=== PATIENT | female | born 1965 | race Caucasian/White ===

== ENCOUNTER → 2018-03-28 12:03 | Outpatient (CLI) | payer BC, SELFPAY ==
--- NOTE | 2018-03-28 12:05 | BI_ITS ---
MAMMOGRAPHY - BILATERAL SCREENING REASON FOR EXAM: Female, 52 years old. Routine annual screening examination. PERTINENT HISTORY: Non-contributory. TECHNIQUE: Digital bilateral breast katrina (3D mammographic acquisition) in the CC and MLO projections. 2-D mediolateral oblique (MLO) and craniocaudad (CC) views of both breasts were obtained. CAD: Full Field Digital Mammography with Computer Added Detection was performed. COMPARISON: Comparison is made with prior study dated March 19, 2017 and January 03, 2016. FINDINGS: Breast Composition: The breasts are heterogeneously dense, which may obscure small masses. There are no dominant masses or suspicious calcifications. No other significant abnormalities are identified. There has been no significant change since the prior study. BI/SCREENING MAMM (CAD), BILAT IMPRESSION: Stable bilateral screening mammogram. Yearly follow-up mammogram recommended. (A) ASSESSMENT CATEGORY: BIRADS Category 1: Negative. A letter regarding these results will be sent to the patient by the facility within 30 days. Approximately 10% of breast cancers are not detected by mammography. A normal mammogram should not delay biopsy of a clinically suspicious abnormality. [id number] Electronically Signed: Miguel Alexander MD at 13:39 EDT Tel [phone], Service support ,
== END ==
PROVIDERS: Family Provider Internal Medicine; PCP Internal Medicine; Visit Provider Nurse Practitioner Women's Health
DX: Z12.31 Encounter for screening mammogram for malignant neoplasm of breast (principal)
CPT/HCPCS: 77063; 77067

== ENCOUNTER 2018-03-31 09:53 | Inpatient (IN) | payer BC, SELFPAY ==
[2018-03-31 09:54] VITALS: BP 127/85; PULSE 96; RESP 16; TEMP 37.1; O2SAT 97; BMI 28.5
--- NOTE | 2018-03-31 10:07 | EKG12_ITS ---
Test Reason : Blood Pressure : / mmHG Vent. Rate : 082 BPM Atrial Rate : 082 BPM P-R Int : 184 ms QRS Dur : 112 ms QT Int : 408 ms P-R-T Axes : 054 053 039 degrees QTc Int : 476 ms Normal sinus rhythm Low voltage QRS Borderline ECG Confirmed by GRAEME PERLA, JENNIFER ([id number]), assignment editor KINGSTON BETTS ([id number]) on 04/03/2018 1:15:20 PM Referred By: Otilia Collins Confirmed By:JENNIFER BEDOLLA MD
--- NOTE | 2018-03-31 10:07 | RAD_ITS ---
STUDY: X-RAY CHEST REASON FOR EXAM: Female, 52 years old. Preoperative evaluation. TECHNIQUE: Single AP portable view of the chest. COMPARISON: Comparison is made with prior study dated August 05, 2013. FINDINGS: EKG electrodes are seen. The lungs are clear and expanded. There is no demonstrated pleural abnormality. Normal size heart. Normal mediastinum and david. Normal visualized pulmonary arteries. Normal visualized aortic arch and descending thoracic aorta. Normal visualized thoracic spine. Normal visualized ribs, clavicles, and shoulders. There is no demonstrated abnormality of the visualized soft tissue structures of the upper abdomen. RAD/Chest 1 View (Portable) IMPRESSION: Normal x-ray examination of the chest. Electronically Signed: Miguel Alexander MD at 10:59 EDT Tel [phone], Service support ,
--- NOTE | 2018-03-31 10:08 | RAD_ITS ---
STUDY: X-RAY - PELVIS REASON FOR EXAM: Female, 52 years old. Right leg pain following a fall from a horse. TECHNIQUE: One view of the pelvis was obtained. COMPARISON: None. FINDINGS: There is a non-specific bowel gas pattern. There is a 5.9 cm x 4.2 cm rounded calcification in the right hemipelvis. This most likely represents a calcified fibroid uterus. Normal bilateral iliac wings, sacroiliac joints and visualized sacrum. Normal visualized bilateral superior and inferior pubic rami. Normal pubic symphysis. Normal ischial tuberosities. Normal visualized right femoral head. Normal right acetabulum. Normal right hip joint. Normal visualized left femoral head. Normal left acetabulum. Normal left hip joint. RAD/Pelvis 1 or 2 Views IMPRESSION: No fracture or dislocation is seen. Findings suggestive of a calcified fibroid uterus. Electronically Signed: Miguel Alexander MD at 10:59 EDT Tel [phone], Service support ,
--- NOTE | 2018-03-31 10:08 | RAD_ITS ---
STUDY: X-RAY - RIGHT FEMUR REASON FOR STUDY: Female, 52 years old. History of fall. TECHNIQUE: Radiological exam, femur, minimum 2 views COMPARISON: None. FINDINGS: Transverse fracture of the distal femoral shaft with anterior dislocation of the distal fracture fragment. Soft tissue swelling. RAD/Femur Min 2 Views IMPRESSION: Transverse fracture through the distal shaft of the femur with anterior dislocation of the distal fracture fragment. Soft tissue swelling. Electronically Signed: Miguel Alexander MD at 11:00 EDT Tel [phone], Service support ,
--- NOTE | 2018-03-31 10:11 | NURSING ---
NO OLD EKGS
--- NOTE | 2018-03-31 10:12 | ED.VISSUMM ---
- ER Visit Summary Date of Service: 03/31/18 Chief Complaint: Leg trauma History of Present Illness: The patient is a 52 F with a crush injury to her right mid femur region. Apparently a horse landed on her femur. No hip pain no knee pain no head injury no back pain no abdominal pain no chest pain. Physical Examination: Patient has no other signs of trauma. She has a stable pelvis a soft abdomen no back pain. She has no knee pain. She has quite a bit of pain over the midshaft of her femur. There is an obvious deformity. There is no skin break. Distal pulses are intact. Normal capillary refill. Neurovascularly intact Emergency Department Course and Treatment: She is found to have a distal femur fracture. Analgesia was given. EKG and chest x-ray as well as blood work were obtained. Pelvis and knee x-ray were unremarkable. Patient will be admitted I will discuss with orthopedics for surgery. Disposition: Admit stable condition Impression: Right distal femur fracture This note was generated with [employer] dictation software. It may contain incorrect words, spelling, and punctuation that were not noted in review of the chart prior to signing ED Disposition - Plan for ED Patient: Chief Complaint: Lower Extremity Injury Referrals: Katelyn Richmond DO [Primary Care Provider] -
[2018-03-31] MEDS: Morphine 4 MG/ML Syringe IV (10:13)
[2018-03-31 10:22] LABS: Absolute Lymphocyte Count 1.39 X10^3/ul (0.83-4.51); Absolute Neutrophil Count 5.5 X10^3/uL (2.0-7.7); Basophil# 0.03 X10^3/uL; Basophil% 0.4 % (0-1); Eosinophil# 0.12 X10^3/uL; Eosinophils% 1.6 % (0-5); Hematocrit 41.5 % (37-47); Hemoglobin 13.9 g/dl (12.0-15.0); Lymphocyte # 1.39 X10^3/ul (4.0); Lymphocyte % 18.7 % (19-41); Mean Corp Hgb Conc 33.5 g/gl (32-36); Mean Corpuscular Hgb 29.6 pg (27.0-32.0); Mean Corpuscular Volume 88.3 fL (81-99); Mean Platelet Vol. 11.3 fl (6.2-12.0); Monocyte# 0.39 X10^3/uL; Monocyte% 5.2 % (0-10); Neutrophil # 5.48 X10^3/uL (2.7-7.7); Neutrophil % 73.7 % (47-70); Platelet Count 213 K/mm3 (150-450); RBC Distribution Width CV 13.2 % (11.6-14.6); RBC Distribution Width SD 42.5 fl (35.1-43.9); White Blood Count 7.4 K/mm3 (4.4-11.0)
[2018-03-31] MEDS: Ondansetron 4 MG/2 ML Vial IV ×2 (10:23→12:17)
[2018-03-31 10:24] LABS: POSITIVE COUNT NO; POSITIVE DIFFERENTIAL NO; POSITIVE MORPHOLOGY NO
[2018-03-31 10:39] LABS: AST(SGOT) 33 U/L (15-37); Alanine Aminotransfer ALT/SGPT 32 U/L (13-56); Albumin, Serum 3.7 g/dL (3.2-5.0); Alkaline Phosphatase 74 U/L (45-117); Anion Gap 8 (5-15); BUN 19 mg/dL (7-18); BUN/Creat Ratio 19.3 RATIO (10-20); Calcium,Total 8.8 mg/dL (8.5-10.1); Chloride 106 mmol/L (98-107); Creatinine, Serum 0.99 mg/dL (0.55-1.02); EST Glomerular Filtration Rate 63 mL/min (>60); Est Glom Filt Rate - Afr Amer 77 mL/min (>60); Estimated Creatinine Clearance 56.24 ml/min; Globulin 3.6 g/dL (2.2-4.2); Glucose 151 mg/dL (74-106); Potassium 3.6 mmol/L (3.5-5.1); Protein, Total 7.3 g/dL (6.4-8.2); Sodium Level 143 mmol/L (136-145)
--- NOTE | 2018-03-31 11:22 | NURSING ---
DR BURTON SOTO
--- NOTE | 2018-03-31 11:24 | ED.RN ---
THIS RN AND CHRISSY LI FLUSHED PT RT FOOT WOUND MULTIPLE TIMES . WOUND PICKED CLEAN OF MAGGOTS. AREA FLUSHED TIL CLEAR.FOOT WRAPPED WITH TELFA,AND KERLEX. SMALL 4X4 FOLDED IN BETWEEN TOES TO DRY. DR PALMA
--- NOTE | 2018-03-31 11:29 | NURSING ---
DR RAVI SOTO
--- NOTE | 2018-03-31 11:33 | NURSING ---
MED SURG FEMUR FX RAVI/BRITTANY
--- NOTE | 2018-03-31 11:43 | NURSING ---
MED SURG FX OF LOWER EXTREMITY KORAM
--- NOTE | 2018-03-31 11:49 | NURSING ---
DR RODRIGUES IN WITH PATIENT
[2018-03-31 11:57] VITALS: PULSE 73; RESP 15; O2SAT 99
--- NOTE | 2018-03-31 11:59 | PCM.HP.STD ---
Problem List (1) Right femoral fracture Status: Acute History of Present Illness Date of Admission: 03/31/18 Chief Complaint: right LE pain The patient is a 52 year old F with a history of hypothyroidism. She was admitted via the ED, with a complaint of left hip pain after she fell off her horse this morning. She says she thinks the horse stepped on her leg, and she started having severe pain after that. She denies any fever or chills, any cough or chest pain, shortness of breath, abdominal pain, any diarrhea vomiting. Imaging done in the ED showed fracture of the right femur. She has been admitted to be managed for right femoral fracture, to consult orthopedics. 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 Lives: With Family Smoking Status: Former smoker - quit over 20 years ago Alcohol: Rare Drugs: None - *Family History Maternal History Items: Hypertension Paternal History Items: Heart Disease, Hypertension Review of Systems Constitutional: Denies: Chills, Fever, Weight Change Eyes: Denies: Blurred vision HEENT: Denies: Head Aches, Sinus Congestion, Sinus Drainage Cardiovascular: Denies: Chest Pain, Palpitations Respiratory: Denies: Cough, Shortness of breath at rest, Sputum production Gastrointestinal: Denies: Abdominal Pain, Nausea, Vomiting Genitourinary: Denies: Dysuria Musculoskeletal: Reports: Leg Pain - right lower extremity pain Skin: Denies: Rash, Wounds Neurological: Denies: Numbness, Tingling, Focal weakness Psychiatric: Denies: Anxiety, Depression, Homicidal Ideations, Suicidal Ideations Hematologic/ Lymphatic: Denies: Easy Bruising, Easy Bleeding VTE Information - Inpt Only VTE Present on Admission: No VTE Mechan Device Prophylaxis: SCD's VTE Pharm Prophylaxis ordered?: Yes Patient Problems: Active and Suspected Problems Right femoral fracture (Acute) - Physical Exam General: Alert, Oriented x3, Cooperative, No apparent distress HEENT: Atraumatic, PERRLA, EOMI, Normocephalic Oral: Moist Mucosa Neck: Supple, No JVD, Negative Carotid Bruits Lungs: Clear to auscultation, Normal air movement Cardiovascular: Regular rate, Regular Rhythm, Normal S1, Normal S2, No murmurs Abdomen: Bowel Sounds Present, Soft, Non Tender, Non-Distended, No Hepato-splenomegaly Extremities: No clubbing, No cyanosis, No edema, Capillary Refill Less than 3 Seconds Skin: No rashes, No breakdown Musculoskeletal: - - RLE shortened, externally rotated, no visible swelling or erythema Lymphatic: No Cervical, Supraclavicular, or Inguinal Adenopathy Neurological: Cranial nerves II-XII grossly intact, Neuro grossly intact Psych/Mental Status: Normal Affect, Appropriate, Alert and oriented to time, place, person, mood and affect Vital Signs Temp Pulse Resp BP Pulse Ox 98.7 F 73 15 127/85 H 99 03/31/18 09:54 03/31/18 11:57 03/31/18 11:57 03/31/18 09:54 03/31/18 11:57 Oxygen Delivery Method Room Air Weight: 160 lb 14.999 oz Body Mass Index (BMI) 28.5 Laboratory Tests Past 24 Hrs 03/31/18 03/31/18 09:30 09:30 WBC 7.4 RBC 4.70 Hgb 13.9 Hct 41.5 MCV 88.3 MCH 29.6 MCHC 33.5 RDW 13.2 RDW Differential 42.5 Plt Count 213 MPV 11.3 Immature Gran % (Auto) 0.400 Neut % (Auto) 73.7 H Lymph % (Auto) 18.7 L Harris % (Auto) 5.2 Eos % (Auto) 1.6 Baso % (Auto) 0.4 Absolute Neuts (auto) 5.5 Absolute Lymphs (auto) 1.39 Diagnostic Data Chest X-Ray 03/31/18 10:07 IMPRESSION: Normal x-ray examination of the chest. Electronically Signed: Miguel Alexander MD at 10:59 EDT Tel [phone], Service support , Femur X-Ray 03/31/18 10:08 IMPRESSION: Transverse fracture through the distal shaft of the femur with anterior dislocation of the distal fracture fragment. Soft tissue swelling. Electronically Signed: Miguel Alexander MD at 11:00 EDT Tel [phone], Service support , Pelvis X-Ray 03/31/18 10:08 IMPRESSION: No fracture or dislocation is seen. Findings suggestive of a calcified fibroid uterus. Electronically Signed: Miguel Alexander MD at 10:59 EDT Tel [phone], Service support , Total Counted Not Reportable Sodium 143 Potassium 3.6 Chloride 106 Carbon Dioxide 29.0 Anion Gap 8 BUN 19 H Creatinine 0.99 Estim Creat Clear Calc 56.24 Est GFR (MDRD) Af Amer 77 Est GFR (MDRD) Non-Af 63 BUN/Creatinine Ratio 19.3 Glucose 151 H Calcium 8.8 Total Bilirubin 0.50 AST 33 ALT 32 Alkaline Phosphatase 74 Total Protein 7.3 Albumin 3.7 Globulin 3.6 Albumin/Globulin Ratio 1.0 Assessment/Plan All Active Problems Right femoral fracture (Acute) 52 year-old female presenting with right lower extremity pain after she fell off her horse and horse stepped on her right leg. 1. RLE traumatic femoral fracture Right lower extremity shortened and externally rotated. Vitals stable. Imaging showed transverse fracture of the distal femoral shaft with anterior dislocation of the distal fracture fragment and soft tissue swelling. Will admit to MedSurg unit. N.p.o., IV fluids. IV morphine for pain control. Orthopedic surgery consult placed. Per discussion with Dr Rondon, patient to have skin traction; if that is unsuccessful, with have skeletal traction done by Dr Rondon. EKG showed NSR with no acute ST changes or any other abnormalities. Is low risk for surgery 2. Hypothyroidism: on synthroid. Will continue 3. DVT prophylaxis: heparin This note was generated with [employer] software. It may contain incorrect words, spelling, and punctuation that were not noted in checking the note before signing. Code Visit Inpatient E&M: 43192 Init Hosp L2
[2018-03-31] MEDS: HYDROmorphone 1 MG/ML Syringe IV (12:07)
--- NOTE | 2018-03-31 12:09 | HP.PCM_ITS ---
Problem List (1) Right femoral fracture Status: Acute History of Present Illness Date of Admission: 03/31/18 Chief Complaint: right LE pain The patient is a 52 year old F with a history of hypothyroidism. She was admitted via the ED, with a complaint of left hip pain after she fell off her horse this morning. She says she thinks the horse stepped on her leg, and she started having severe pain after that. She denies any fever or chills, any cough or chest pain, shortness of breath, abdominal pain, any diarrhea vomiting. Imaging done in the ED showed fracture of the right femur. She has been admitted to be managed for right femoral fracture, to consult orthopedics. 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 Lives: With Family Smoking Status: Former smoker - quit over 20 years ago Alcohol: Rare Drugs: None - *Family History Maternal History Items: Hypertension Paternal History Items: Heart Disease, Hypertension Review of Systems Constitutional: Denies: Chills, Fever, Weight Change Eyes: Denies: Blurred vision HEENT: Denies: Head Aches, Sinus Congestion, Sinus Drainage Cardiovascular: Denies: Chest Pain, Palpitations Respiratory: Denies: Cough, Shortness of breath at rest, Sputum production Gastrointestinal: Denies: Abdominal Pain, Nausea, Vomiting Genitourinary: Denies: Dysuria Musculoskeletal: Reports: Leg Pain - right lower extremity pain Skin: Denies: Rash, Wounds Neurological: Denies: Numbness, Tingling, Focal weakness Psychiatric: Denies: Anxiety, Depression, Homicidal Ideations, Suicidal Ideations Hematologic/ Lymphatic: Denies: Easy Bruising, Easy Bleeding VTE Information - Inpt Only VTE Present on Admission: No VTE Mechan Device Prophylaxis: SCD's VTE Pharm Prophylaxis ordered?: Yes Patient Problems: Active and Suspected Problems Right femoral fracture (Acute) - Physical Exam General: Alert, Oriented x3, Cooperative, No apparent distress HEENT: Atraumatic, PERRLA, EOMI, Normocephalic Oral: Moist Mucosa Neck: Supple, No JVD, Negative Carotid Bruits Lungs: Clear to auscultation, Normal air movement Cardiovascular: Regular rate, Regular Rhythm, Normal S1, Normal S2, No murmurs Abdomen: Bowel Sounds Present, Soft, Non Tender, Non-Distended, No Hepato- splenomegaly Extremities: No clubbing, No cyanosis, No edema, Capillary Refill Less than 3 Seconds Skin: No rashes, No breakdown Musculoskeletal: - - RLE shortened, externally rotated, no visible swelling or erythema Lymphatic: No Cervical, Supraclavicular, or Inguinal Adenopathy Neurological: Cranial nerves II-XII grossly intact, Neuro grossly intact Psych/Mental Status: Normal Affect, Appropriate, Alert and oriented to time, place, person, mood and affect Vital Signs Temp Pulse Resp BP Pulse Ox 98.7 F 73 15 127/85 H 99 03/31/18 09:54 03/31/18 11:57 03/31/18 11:57 03/31/18 09:54 03/31/18 11:57 Oxygen Delivery Method Room Air Weight: 160 lb 14.999 oz Body Mass Index (BMI) 28.5 Laboratory Tests Past 24 Hrs 03/31/18 03/31/18 09:30 09:30 WBC 7.4 RBC 4.70 Hgb 13.9 Hct 41.5 MCV 88.3 MCH 29.6 MCHC 33.5 RDW 13.2 RDW Differential 42.5 Plt Count 213 MPV 11.3 Immature Gran % (Auto) 0.400 Neut % (Auto) 73.7 H Lymph % (Auto) 18.7 L Barnwell % (Auto) 5.2 Eos % (Auto) 1.6 Baso % (Auto) 0.4 Absolute Neuts (auto) 5.5 Absolute Lymphs (auto) 1.39 Diagnostic Data Chest X-Ray 03/31/18 10:07 IMPRESSION: Normal x-ray examination of the chest. Electronically Signed: Miguel Alexander MD at 10:59 EDT Tel [phone], Service support , Femur X-Ray 03/31/18 10:08 IMPRESSION: Transverse fracture through the distal shaft of the femur with anterior dislocation of the distal fracture fragment. Soft tissue swelling. Electronically Signed: Miguel Alexander MD at 11:00 EDT Tel [phone], Service support , Pelvis X-Ray 03/31/18 10:08 IMPRESSION: No fracture or dislocation is seen. Findings suggestive of a calcified fibroid uterus. Electronically Signed: Miguel Alexander MD at 10:59 EDT Tel [phone], Service support , Total Counted Not Reportable Sodium 143 Potassium 3.6 Chloride 106 Carbon Dioxide 29.0 Anion Gap 8 BUN 19 H Creatinine 0.99 Estim Creat Clear Calc 56.24 Est GFR (MDRD) Af Amer 77 Est GFR (MDRD) Non-Af 63 BUN/Creatinine Ratio 19.3 Glucose 151 H Calcium 8.8 Total Bilirubin 0.50 AST 33 ALT 32 Alkaline Phosphatase 74 Total Protein 7.3 Albumin 3.7 Globulin 3.6 Albumin/Globulin Ratio 1.0 Assessment/Plan All Active Problems Right femoral fracture (Acute) 52 year-old female presenting with right lower extremity pain after she fell off her horse and horse stepped on her right leg. 1. RLE traumatic femoral fracture * Right lower extremity shortened and externally rotated. * Vitals stable. * Imaging showed transverse fracture of the distal femoral shaft with anterior dislocation of the distal fracture fragment and soft tissue swelling. * Will admit to MedSurg unit. * N.p.o., IV fluids. IV morphine for pain control. * Orthopedic surgery consult placed. Per discussion with Dr Rondon, patient to have skin traction; if that is unsuccessful, with have skeletal traction done by Dr Rondon. * EKG showed NSR with no acute ST changes or any other abnormalities. Is low risk for surgery * 2. Hypothyroidism: on synthroid. Will continue 3. DVT prophylaxis: heparin This note was generated with [employer] software. It may contain incorrect words, spelling, and punctuation that were not noted in checking the note before signing. Code Visit Inpatient E&M: 77076 Init Hosp L2
[2018-03-31 12:18] VITALS: PULSE 78; RESP 19; O2SAT 98
[2018-03-31 12:35] VITALS: BP 116/69; PULSE 73; RESP 18; TEMP 36.7; O2SAT 98
[2018-03-31 12:48] VITALS: BMI 28.3; BMI 28.5
[2018-03-31] MEDS: Ketorolac 30 MG/ML Syringe IV (13:12)
--- NOTE | 2018-03-31 14:08 | RAD_ITS ---
STUDY: X-RAY - RIGHT TIBIA AND FIBULA REASON FOR EXAM: Female, 52 years old. Traction device applied, right calf edema and pain. TECHNIQUE: 2 view(s) of the tibia and fibula were obtained. COMPARISON: None. FINDINGS: Tibia and fibula intact, normally mineralized, and normally articulated at the knee and ankle. There is fullness of the calf soft tissues. Correlate for swelling/edema. RAD/Tibia & Fibula 2 Views IMPRESSION: Suspected calf edema. Unremarkable tibia and fibula. Electronically Signed: Tirso Hall, at 15:42 EDT Tel , Service support ,
--- NOTE | 2018-03-31 14:10 | RAD_ITS ---
STUDY: X-RAY - RIGHT FEMUR REASON FOR STUDY: Female, 52 years old. Traction device, right calf pain. TECHNIQUE: Radiological exam, femur, minimum 2 views COMPARISON: X-ray femur 03/31/2018 earlier today. FINDINGS: Distal diaphyseal displaced and overlapping fracture due to contracture. Mild comminution. Unremarkable soft tissues. Normal hip joint. Normal knee joint articulation. RAD/Femur Min 2 Views IMPRESSION: Displaced, overlapping and mildly comminuted fracture of the distal femoral diaphysis. Overlap by approximately 3.5 cm. Electronically Signed: Tirso Hall, at 15:43 EDT Tel , Service support ,
--- NOTE | 2018-03-31 14:11 | NURSING ---
DR MANRIQUE MADE AWARE OF EDEMA/PAIN R CALF. NEW ORDERS RECEIVED.
--- NOTE | 2018-03-31 15:09 | NURSING ---
DR MANRIQUE NOTIFIED THAT ADDITIONAL XRAYS HAD BEEN COMPLETED.
[2018-03-31 15:44] VITALS: BP 115/74; PULSE 87; RESP 18; TEMP 37.2; O2SAT 99
--- NOTE | 2018-03-31 17:39 | CON.PCM_ITS ---
Reason for Consult Date of Consultation: 03/31/18 Reason for Consultation: right femur fracture. requested by dr tatum History of Present Illness: The patient is a 52 year old F with history of hypothyroid disease otherwise healthy presented to the emergency department this morning after her horse rolled over on her right leg. Patient presented with deformity and pain to the right thigh. Patient reports no previous history of right thigh pain. Otherwise active healthy individual. Denies any associated numbness and tingling. Does have associated swelling of the thigh. She does have an associated abrasion over the posterior knee. She is unable to bear weight. Pain is a 2 out of 10 controlled by her current pain medications in traction. Worse with motion better with immobilization and traction. The dull achy pain in her thigh. 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 Lives: With Family Smoking Status: Former smoker Tobacco Use: Non-smoker Alcohol: Rare Drugs: None - *Family History Maternal History Items: Hypertension Paternal History Items: Heart Disease, Hypertension Review of Systems Constitutional: Denies: Chills, Fever, Weight Change HEENT: Denies: Head Aches, Sinus Congestion, Sinus Drainage Cardiovascular: Denies: Chest Pain, Palpitations Respiratory: Denies: Cough, Shortness of breath at rest, Sputum production Gastrointestinal: Denies: Abdominal Pain, Nausea, Vomiting Genitourinary: Denies: Dysuria Musculoskeletal: Reports: - - See HPI Skin: Reports: Wounds - Posterior knee abrasions. Denies: Rash Neurological: Denies: Numbness, Tingling, Focal weakness Psychiatric: Denies: Anxiety, Depression, Homicidal Ideations, Suicidal Ideations Hematologic/ Lymphatic: Denies: Easy Bruising, Easy Bleeding Patient Problems: Active and Suspected Problems Right femoral fracture (Acute) Objective: Right femur films show a distal femoral shaft transverse fracture just proximal to the metaphyseal flare. There is shortening and 100% translation of the fracture. - Physical Exam General: Alert, Oriented x3, Cooperative Extremities: - - Right lower extremity: Right leg is placed in skin traction with 10 pounds of traction. Patient has brisk cap refill of her toes. Sensations intact light touch saphenous/sural/pressure peroneal/deep peroneal and tibial nerve distributions. Motor is intact dorsiflexion EHL and plantar flexion. Palpable pulses. Thigh is swollen with tenderness palpation. There are small abrasion in the posterior knee very superficial. No abrasions over the anterior knee. Vital Signs Temp Pulse Resp BP Pulse Ox 98.9 F 87 18 115/74 99 03/31/18 15:44 03/31/18 15:44 03/31/18 15:44 03/31/18 15:44 03/31/18 15:44 Oxygen Delivery Method Room Air Weight: 160 lb 5 oz Body Mass Index (BMI) 28.3 Assessment/Plan All Active Problems Right femoral fracture (Acute) Right distal femoral shaft fracture, transverse displaced. 1. Treatment options were discussed the patient including skeletal traction and nonoperative treatment versus open reduction internal fixation versus retrograde femoral nailing. At this time I recommended a retrograde femoral nail based on patient's fracture pattern. We did discuss potential risks and benefits which include but are not limited to blood loss, DVTs, PEs, neurovascular was complex, the risk of anesthesia including loss of life. We also discussed nonunion, malunion. Specifically for this case we discussed femoral nerve injuries with the proximal screw placement and knee pain. Patient did straighten understanding wishes to proceed. She is able to sign informed consent at this time. 2. Pain control: Patient currently has IV Dilaudid but surgery will be delayed till tomorrow. We will allow her diet and start oxycodone and Tylenol. 3. DVT prophylaxis: Hold DVT prophylaxis this evening 4. Activity: Bedrest, skin traction right lower extremity 10 pounds 5. Surgery: Plan for retrograde femoral nail tomorrow midmorning. Patient has 2 g Ancef on-call to the operating room. Patient is currently consented for surgery. [facility] Office:
[2018-03-31] MEDS: oxyCODONE 5 MG Tablet PO ×2 (18:25→22:27)
[2018-03-31] MEDS: Acetaminophen 500 MG Tablet 1000 MG PO (21:36)
[2018-03-31 21:43] VITALS: BP 134/67; PULSE 73; RESP 18; TEMP 36.7; O2SAT 100
[2018-04-01] VITALS (11 sets, daily range): BP systolic 112–146; BP diastolic 55–92; PULSE 72–110; RESP 14–18; TEMP 36.4–37.2; O2SAT 93–100; BMI 28.3
[2018-04-01] MEDS: 0.9% Normal Saline 1,000 ML 100 ML IV ×2 (02:30→13:55)
[2018-04-01] MEDS: HYDROmorphone 1 MG/ML Syringe IV (05:52)
[2018-04-01] MEDS: Ondansetron 4 MG/2 ML Vial IV (05:52)
[2018-04-01 06:17] LABS: Hemoglobin 11.6 g/dl (12.0-15.0); Mean Corp Hgb Conc 33.1 g/gl (32-36); Mean Corpuscular Hgb 29.5 pg (27.0-32.0); Mean Corpuscular Volume 89.1 fL (81-99); Mean Platelet Vol. 11.5 fl (6.2-12.0); Platelet Count 166 K/mm3 (150-450); RBC Distribution Width CV 13.5 % (11.6-14.6); RBC Distribution Width SD 43.9 fl (35.1-43.9); Red Blood Count 3.93 M/mm3 (4.2-5.4); White Blood Count 6.6 K/mm3 (4.4-11.0)
[2018-04-01 06:25] LABS: Scan Indicated on CBC? Y/N NO
[2018-04-01 06:42] LABS: Creatinine, Serum 0.76 mg/dL (0.55-1.02); EST Glomerular Filtration Rate 86 mL/min (>60); Est Glom Filt Rate - Afr Amer 104 mL/min (>60); Estimated Creatinine Clearance 73.26 ml/min; Thyroid Stim Hormone (TSH) 4.43 uIU/mL (0.358-3.74)
--- NOTE | 2018-04-01 09:51 | NURSING ---
PT LEFT FOR SURGERY, REPORT CALLED.
--- NOTE | 2018-04-01 10:13 | PCM.PN.HOSP ---
Patient Problems: Active and Suspected Problems (Last Updated 03/31/18 @ 17:36 by Cesar Rondon MD) Right femoral fracture (Acute) Subjective: Patient seen and examined. She has no complaints this morning. Pain is well controlled. She denies any fever or chills, any cough or chest pain, shortness of breath, any abdominal pain, any diarrhea vomiting. Review of systems otherwise negative. Vitals/I&O's: Vital Signs Temp Pulse Resp BP Pulse Ox 98.2 F 74 16 113/72 99 04/01/18 07:30 04/01/18 07:30 04/01/18 07:30 04/01/18 07:30 04/01/18 07:30 Oxygen Delivery Method Room Air Weight: 160 lb 5 oz Body Mass Index (BMI) 28.3 Intake and Output for Last 24 Hours 03/30/18 03/31/18 04/01/18 23:59 23:59 23:59 Intake Total 840 / 840 1879 / 1879 Balance 840 / 840 1878 / 187 General: Alert, Oriented x3, Cooperative, No apparent distress HEENT: Atraumatic, PERRLA, EOMI, Normocephalic Oral: Moist Mucosa Neck: Supple, No JVD, Negative Carotid Bruits Lungs: Clear to auscultation, Normal air movement, No rhonchi, No wheeze, No rales Cardiovascular: Regular rate, Regular Rhythm, Normal S1, Normal S2, No murmurs Abdomen: Bowel Sounds Present, Soft, Non Tender, Non-Distended, No Hepato-splenomegaly Extremities: No clubbing, No cyanosis, No edema, - - Right lower extremity in skin traction. Skin: No rashes, No breakdown Musculoskeletal: No Tenderness to Palpation of Joints or Extremities Lymphatic: No Cervical, Supraclavicular, or Inguinal Adenopathy Neurological: Cranial nerves II-XII grossly intact Psych/Mental Status: Normal Affect, Appropriate, Alert and oriented to time, place, person, mood and affect Laboratory Results 04/01/18 05:40: WBC 6.6, RBC 3.93 L, Hgb 11.6 L, Hct 35.0 L, MCV 89.1, MCH 29.5, MCHC 33.1, RDW 13.5, RDW Differential 43.9, Plt Count 166, MPV 11.5 04/01/18 05:40: Creatinine 0.76, Estim Creat Clear Calc 73.26, Est GFR (MDRD) Af Amer 104, Est GFR (MDRD) Non-Af 86, TSH 4.43 H Current Medications Acetaminophen (Tylenol) 1,000 mg PO Q8 [facility] Last Admin: 04/01/18 05:19 Dose: Not Given Hydromorphone HCl (Dilaudid Inj) 1 mg IV Q4H PRN PRN PRN Reason: SEVERE PAIN () Last Admin: 04/01/18 05:52 Dose: 1 mg Sodium Chloride () 1,000 mls @ 100 mls/hr IV .Q10H [facility] Last Admin: 04/01/18 02:30 Dose: 100 mls/hr Levothyroxine Sodium (Synthroid) 75 mcg PO DAILY@0600 [facility] Last Admin: 04/01/18 05:19 Dose: Not Given Magnesium Hydroxide (Milk Of Magnesia) 30 ml PO DAILY PRN PRN PRN Reason: Constipation Ondansetron HCl (Zofran) 4 mg IV Q6H PRN PRN PRN Reason: NAUSEA/VOMITING Last Admin: 04/01/18 05:52 Dose: 4 mg Oxycodone HCl (Oxyir) 5 mg PO Q4H PRN PRN PRN Reason: SEVERE PAIN () Last Admin: 03/31/18 22:27 Dose: 5 mg Medical Necessity - Tobacco Use Smoking Status: Former smoker Tobacco Use: Non-smoker Assessment/Plan All Active Problems (Last Updated 03/31/18 @ 17:36 by Cesar Rondon MD) Right femoral fracture (Acute) 52 year-old female presenting with right lower extremity pain after she fell off her horse and horse stepped on her right leg. 1. RLE traumatic femoral fracture RLE in skin traction. Imaging showed transverse fracture of the distal femoral shaft with anterior dislocation of the distal fracture fragment and soft tissue swelling. on IV dilaudid for pain on IVF. ORthopedic surgery on board for surgery today 2. Hypothyroidism: on synthroid. TSH is 4.43. Will adjust dose of synthroid 3. DVT prophylaxis: heparin This note was generated with [employer] software. It may contain incorrect words, spelling, and punctuation that were not noted in checking the note before signing. Code Visit Inpatient E&M: 19109 Subs Hosp L2
[2018-04-01] MEDS: 0.9% Normal Saline 1,000 ML 999 ML IV (10:38)
--- NOTE | 2018-04-01 11:00 | CASEMGMT ---
RN CM attempted to complete Face to Face with patient. Patient currently in surgery. RN CM will attempt to complete assessment at a later time.
--- NOTE | 2018-04-01 11:15 | RAD_ITS ---
STUDY: X-RAY - RIGHT FEMUR REASON FOR STUDY: Female, 52 years old. Retrograde intramedullary rodding. TECHNIQUE: 12 intraoperative images were performed. COMPARISON: Right femur, March 31, 2018. FINDINGS: A series of 12 images demonstrate placement of intramedullary gaby upper from the intercondylar notch to the level of the greater trochanter. The displaced diaphyseal fracture is in normal alignment. There is placement of anchoring screws through both the proximal femur and distal metaphyses. Please refer to the operative report for further details. RAD/Femur Min 2 Views IMPRESSION: Rodding of a right femoral fracture in the OR. Electronically Signed: Sonny Barnett DO at 16:48 EDT Tel [phone], Service support ,
--- NOTE | 2018-04-01 12:02 | PCM.OPRPT ---
Report of Operation Date of Procedure: 04/01/18 Pre-Operative Diagnosis: Right transverse distal femoral shaft fracture Post-Operative Diagnosis: Right transverse distal femoral shaft fracture Surgery/Procedure Performed:: Intramedullary nail, retrograde right femur shaft fracture Description of Surgical Findings:: Stable reduced fracture senior policy associate: Zaki Campos Type of Anesthesia:: General Anesthesiologist: Stepan Wallace Special Medications: 2 g Ancef Estimated Blood Loss (mL): 25 Fluids Replaced: 1500 mL crystalloid Description of Procedure: My physician certified physician assistant was vital throughout this case. He was vital in positioning of the patient for the procedure. He was vital in helping during reduction of the fracture and maintaining reduction throughout the course of the case. He is also vital in protecting vital structures throughout the case. His knowledge of the procedure and anatomy aid in safe and expedient completion of the procedure. He was also vital in closure under my direct supervision. 52-year-old otherwise healthy female had her horse fall on her yesterday. She sustained a midshaft distal femur fracture. We did check for femoral neck fracture which patient had no hip pain and negative x-rays. Patient was placed in traction last night we discussed treatment options. At this point I recommended intramedullary fixation through a retrograde approach of the right femur fracture. Patient demonstrated understanding of risk and benefits which included but were not limited to blood loss, DVTs, PEs, neurovascular was complex, general risk of anesthesia including loss of life, nonunion, malunion and hardware failure. Patient demonstrated understanding was able to sign for consent. Procedure: On the date of the procedure patient's right leg was marked in the preoperative area. Patient was brought back to the operating room where there transferred to the table in the supine position. Anesthesia assumed control the C-spine airway and remained controlled throughout the remainder the procedure. All bony prominences were identified and well-padded and a bump was placed underneath the right hip. Right lower extremity was then prepped in a sterile fashion while surgeon scrubbed. Upon reentering the room right lower externally was draped in standard orthopedic fashion giving us access to the entire leg. Timeout was called everyone agreed upon the side, site from that she did perform, patient identity and by skin. Arthrotomy incision was marked out just distal to the patella. A trial reduction was performed after appropriately reducing the fracture using live x-ray with the assistance of my physician certified physician assistant to help maintain the reduction throughout the case we then made an incision for the arthrotomy. A medial parapatellar arthrotomy was made medial to the patellar tendon. Patella was retracted laterally and live fluoroscopy was used to verify the placement of the entry pin. Once the entry pin placement was verified center center on the AP view and just anterior to Blumensaat's line on the lateral view it was advanced up the femoral shaft. Entry reamer was then used to open up the distal canal. Once this was completed we can verify the fracture reduction and placed a guidewire of the femoral canal. Live fluoroscopy was placed up of the hip to verify the length of the nail. After measuring the nail at 36 cm we then began to ream. We got good chatter at about 10 mm and reamed up to 11.5 mm for a 10 mm nail. 36 cm x 10 mm nail was opened and connected to the entry system. He was then advanced over the guidewire up the femoral canal. We verified the final position both proximally and distally to make sure that the nail was in an adequate depth and the proximal locking screws would be proximal to the anticipated femoral nerve and artery. Once this was completed again length and rotation were verified and distal locking screws were placed. Bump was removed from the hip at this time pelvis was able to lay flat and external rotation was compared to the contralateral leg. Appeared to have similar external rotations. We also used a cortical sign intraoperatively and cortical irregularities to help verify rotation of the leg. Axial compression was placed on the leg and the fracture was compressed. Once this was completed center center technique was used to place the proximal locking screws. We made a skin incision and bluntly dissected down to the bone. Once we are bluntly dissected down to the bone we placed 1 interlocking screw proximally. Once this was completed live fluoroscopy was used to verify the joint distally and the nail placement proximally as well as a fracture reduction. Once we were satisfied with our fracture reduction and nail placement insertion guide was removed and the arthrotomy and proximal screw insertion percutaneous sites were copiously irrigated out with normal saline. Once wound was appropriately irrigated out arthrotomy was closed with 0 Vicryl skin was closed with 2-0 Vicryl and final skin closure was done with yasmany. Sterile dressings were placed and an Mansoor bandage was placed around the right knee. Patient was awakened by anesthesia and transferred to the PACU for recovery. Plan: Patient will be placed on 50% partial weightbearing for 6 weeks followed by full weightbearing pending appropriate fracture healing. She be placed on Xarelto for DVT prophylaxis for 2 weeks. She will likely be is discharged home postoperative day 1. Grafts/Implants Used: [employer] retrograde femoral nail 36 cm x 10 mm - Complications None - Admit VTE Documentation VTE Present on Admission: No VTE Mechan Device Prophylaxis: SCD's, Thigh High FABRIZIO Hose VTE Pharm Prophylaxis ordered?: Yes
--- NOTE | 2018-04-01 12:53 | RAD_ITS ---
STUDY: X-RAY - RIGHT FEMUR REASON FOR STUDY: Female, 52 years old. Postop. TECHNIQUE: Radiological exam, femur, minimum 2 views COMPARISON: Right femur, March 31, 2018. FINDINGS: There is a medullary gaby extending the length of the right femoral shaft. Anchoring screws are seen in both the proximal shaft and through the distal metaphysis. The displaced femoral fracture seen on the earlier study now lies in grossly normal alignment. The hip and knee are preserved. And clips are seen within the soft tissues. RAD/Femur Min 2 Views IMPRESSION: Status post internal fixation of a distal femoral fracture. Electronically Signed: Sonny Barnett DO at 17:05 EDT Tel [phone], Service support ,
[2018-04-01] MEDS: Acetaminophen 500 MG Tablet 1000 MG PO ×2 (15:10→21:56)
[2018-04-01] MEDS: oxyCODONE 5 MG Tablet PO (17:48)
[2018-04-01] MEDS: Cefazolin 1 GM/50 ML BAG IV (18:34)
[2018-04-01] MEDS: Senna/Docusate Sodium 1 Tablet 2 TABLET PO (21:57)
[2018-04-01] MEDS: Lactated Ringers 1,000 ML 125 ML IV (21:59)
[2018-04-02] MEDS: Cefazolin 1 GM/50 ML BAG IV (02:10)
[2018-04-02 02:16] VITALS: BP 122/81; PULSE 68; RESP 14; TEMP 36.9; O2SAT 99
[2018-04-02] MEDS: Rivaroxaban 10 MG Tablet PO (06:11)
[2018-04-02] MEDS: Levothyroxine 75 MCG Tablet PO (06:11)
[2018-04-02] MEDS: Acetaminophen 500 MG Tablet 1000 MG PO ×2 (06:11→12:49)
[2018-04-02 06:24] LABS: Hematocrit 29.6 % (37-47); Hemoglobin 9.5 g/dl (12.0-15.0); Mean Corp Hgb Conc 32.1 g/gl (32-36); Mean Corpuscular Hgb 29.1 pg (27.0-32.0); Mean Corpuscular Volume 90.5 fL (81-99); Mean Platelet Vol. 11.8 fl (6.2-12.0); Platelet Count 165 K/mm3 (150-450); RBC Distribution Width CV 13.4 % (11.6-14.6); RBC Distribution Width SD 43.1 fl (35.1-43.9); Red Blood Count 3.27 M/mm3 (4.2-5.4); White Blood Count 8.6 K/mm3 (4.4-11.0)
[2018-04-02 06:26] LABS: Scan Indicated on CBC? Y/N NO
[2018-04-02 06:27] LABS: Anion Gap 7 (5-15); BUN 8 mg/dL (7-18); BUN/Creat Ratio 10.5 RATIO (10-20); Calcium,Total 8.1 mg/dL (8.5-10.1); Chloride 111 mmol/L (98-107); Creatinine, Serum 0.76 mg/dL (0.55-1.02); EST Glomerular Filtration Rate 85 mL/min (>60); Est Glom Filt Rate - Afr Amer 103 mL/min (>60); Estimated Creatinine Clearance 73.26 ml/min; Glucose 124 mg/dL (74-106); Potassium 3.7 mmol/L (3.5-5.1); Sodium Level 144 mmol/L (136-145)
--- NOTE | 2018-04-02 07:04 | PCM.PN.ORT ---
Patient Problems: Active and Suspected Problems (Last Updated 03/31/18 @ 17:36 by Cesar Rondon MD) Right femoral fracture (Acute) Subjective: The patient was sitting in bedside chair upon examination. Patient denies any chest pain, shortness of breath, dizziness, lightheadedness, nausea or vomiting, or calf pain. Pain is controlled on medications. No adverse overnight events. Overall patient is doing well today. Pain is been well controlled on medications. Patient does wish to go home today. Objective: Vital signs stable and afebrile. Patient is able to plantarflex and dorsiflex actively. Sensation is intact to light touch to saphenous, sural, superficial and deep peroneal, and tibial distribution. Dressings are clean dry and intact. Negative Homans bilaterally, negative signs and symptoms of DVT. - Physical Exam General: Alert, Oriented x3, Cooperative, No apparent distress Vital Signs Temp Pulse Resp BP Pulse Ox 98.4 F 68 14 122/81 H 99 04/02/18 02:16 04/02/18 02:16 04/02/18 02:16 04/02/18 02:16 04/02/18 02:16 Oxygen Delivery Method Room Air Weight: 72.717 kg Body Mass Index (BMI) 28.3 Intake and Output for Last 24 Hours 03/31/18 04/01/18 04/02/18 23:59 23:59 23:59 Intake Total 840 / 840 3982 / 3982 1834 / 1834 Output Total 400 / 400 900 / 900 Balance 840 / 840 3582 / 3582 934 / 934 Laboratory Tests Past 24 Hrs 04/02/18 04/02/18 05:10 05:10 WBC 8.6 RBC 3.27 L Hgb 9.5 L Hct 29.6 L MCV 90.5 MCH 29.1 MCHC 32.1 RDW 13.4 RDW Differential 43.1 Plt Count 165 MPV 11.8 Sodium 144 Potassium 3.7 Chloride 111 H Carbon Dioxide 26.0 Anion Gap 7 BUN 8 Creatinine 0.76 Estim Creat Clear Calc 73.26 Est GFR (MDRD) Af Amer 103 Est GFR (MDRD) Non-Af 85 BUN/Creatinine Ratio 10.5 Glucose 124 H Calcium 8.1 L Medical Necessity - Tobacco Use Smoking Status: Former smoker Tobacco Use: Non-smoker Assessment/Plan All Active Problems (Last Updated 03/31/18 @ 17:36 by Cesar Rondon MD) Right femoral fracture (Acute) 1. S/P intramedullary nail retrograde right femur shaft fracture POD #1 2. Continue Pain Medications: Tylenol and OxyIR 3. DVT Prophylaxis: Xarelto ?2 weeks 4. PT/OT: 50% weightbearing right lower extremity ?6 weeks 5. H & H: 9.5/29.6, asymptomatic 6. Encouraged Incentive Spirometry 7. Continue postoperative medical management per medicine 8. Disposition: Plan will be for discharge home today. Patient's pain is been very well controlled. Patient should go through physical therapy today with plan discharge this afternoon. Prescriptions will be E scribed to [facility]. Patient will need 2 week postoperative follow-up with Dr. Wily Rondon or Nasir Campos PA-C.
[2018-04-02] MEDS: Famotidine 20 MG Tablet PO (07:18)
[2018-04-02] MEDS: Senna/Docusate Sodium 1 Tablet 2 TABLET PO (07:18)
--- NOTE | 2018-04-02 07:19 | DCINST_ITS ---
Discharge Diet: No Restrictions Discharge Activity: May Not Drive May shower in (days): 1 - Turned dressing away from water Ice area for (Minutes): 20 - Every 1-2 hours while awake Weight Bearing Status: Partial weight bearing - 50% weightbearing right lower extremity ?6 weeks Keep extremity elevated above heart level: Operative Extremity Call your doctor if your incision/area has: Continuous Slow Oozing, Sudden Increased Bleeding, Increased Pain/ Swelling, Increased Redness, Foul Smelling Discharge Call your doctor if you observe: Fever of 101 or Higher, Coldness, Increased Pain, Numbness or Tingling, Change in Color Remove Dressing in (days):: 4 - Okay to remove on April 06, 2018 Additional Instructions: FABRIZIO hose for 2 weeks. Okay to take FABRIZIO hose off at night but must be on during the day. Do not submerge incisions under water for 4 weeks postoperatively Allergies/Adverse Reactions: Allergies Sulfa (Sulfonamide Antibiotics) Allergy (Verified 03/31/18 10:01) Rash Medications to take at Discharge Levothyroxine [Synthroid] 75 mcg PO DAILY 03/31/18 Acetaminophen [Tylenol] 1,000 mg PO Q8 #90 tab 04/02/18 Ondansetron HCl [Zofran] 4 mg PO Q8H PRN PRN #20 tab 04/02/18 Oxycodone [Oxyir] 5 mg PO Q4H PRN PRN 5 Days #60 tablet 04/02/18 Rivaroxaban [Xarelto] 10 mg PO DAILY@0600 #14 tab 04/02/18 Senna/Docusate Sodium [Senokot-S] 2 tab PO BID #20 tab 04/02/18 The following prescriptions were given: Oxycodone [Oxyir] 5 mg PO Q4H PRN PRN 5 Days #60 tablet PRN Reason: Severe Pain (6-07/02) Ondansetron HCl [Zofran] 4 mg PO Q8H PRN PRN #20 tab PRN Reason: Nausea/Vomiting Acetaminophen [Tylenol] 1,000 mg PO Q8 #90 tab Rivaroxaban [Xarelto] 10 mg PO DAILY@0600 #14 tab Senna/Docusate Sodium [Senokot-S] 2 tab PO BID #20 tab Primary Care Physician: Yi,Katelyn, DO [Primary Care Provider] - Test Results: Test results from this visit will be discussed in further detail at your follow- up appointment, if applicable. Please Follow Up With: Cesar Rondon MD When: Will need follow up in [address] Rondon or Nasir Campos PA-C
[2018-04-02 07:21] VITALS: BP 110/67; PULSE 71; RESP 16; TEMP 37.3; O2SAT 100
--- NOTE | 2018-04-02 10:36 | PCM.DC.SUM ---
Discharge Date and Diagnosis - Problem List Patient Problems: Active and Suspected Problems (Last Updated 03/31/18 @ 17:36 by Cesar Rondon MD) Right femoral fracture (Acute) Date of Admission: 03/31/18 Date of Discharge: 04/02/18 - Primary Discharge Diagnosis Active and Suspected Problems (Last Updated 03/31/18 @ 17:36 by Cesar Rondon MD) Right femoral fracture (Acute) s/p surgery Hospital Course and Treatment Imaging Results: Diagnostic Data Chest X-Ray 03/31/18 10:07 IMPRESSION: Normal x-ray examination of the chest. Electronically Signed: Miguel Alexander MD at 10:59 EDT Tel [phone], Service support , Pelvis X-Ray 03/31/18 10:08 IMPRESSION: No fracture or dislocation is seen. Findings suggestive of a calcified fibroid uterus. Electronically Signed: Miguel Alexander MD at 10:59 EDT Tel [phone], Service support , Tibia/Fibula X-Ray 03/31/18 14:08 IMPRESSION: Suspected calf edema. Unremarkable tibia and fibula. Electronically Signed: Tirso Hall at 15:42 EDT Tel , Service support , Femur X-Ray 04/01/18 12:53 IMPRESSION: Status post internal fixation of a distal femoral fracture. Electronically Signed: Sonny Barnett DO at 17:05 EDT Tel [phone], Service support , Laboratory Tests 03/31/18 03/31/18 04/01/18 09:30 09:30 05:40 WBC 7.4 6.6 RBC 4.70 3.93 L Hgb 13.9 11.6 L Hct 41.5 35.0 L MCV 88.3 89.1 MCH 29.6 29.5 MCHC 33.5 33.1 RDW 13.2 13.5 RDW Differential 42.5 43.9 Plt Count 213 166 MPV 11.3 11.5 Immature Gran % (Auto) 0.400 Neut % (Auto) 73.7 H Lymph % (Auto) 18.7 L [place] % (Auto) 5.2 Eos % (Auto) 1.6 Baso % (Auto) 0.4 Absolute Neuts (auto) 5.5 Absolute Lymphs (auto) 1.39 Total Counted Not Reportable Sodium 143 Potassium 3.6 Chloride 106 Carbon Dioxide 29.0 Anion Gap 8 BUN 19 H Creatinine 0.99 Estim Creat Clear Calc 56.24 Est GFR (MDRD) Af Amer 77 Est GFR (MDRD) Non-Af 63 BUN/Creatinine Ratio 19.3 Glucose 151 H Calcium 8.8 Total Bilirubin 0.50 AST 33 ALT 32 Alkaline Phosphatase 74 Total Protein 7.3 Albumin 3.7 Globulin 3.6 Albumin/Globulin Ratio 1.0 TSH 04/01/18 04/02/18 04/02/18 05:40 05:10 05:10 WBC 8.6 RBC 3.27 L Hgb 9.5 L Hct 29.6 L MCV 90.5 MCH 29.1 MCHC 32.1 RDW 13.4 RDW Differential 43.1 Plt Count 165 MPV 11.8 Immature Gran % (Auto) Neut % (Auto) Lymph % (Auto) [place] % (Auto) Eos % (Auto) Baso % (Auto) Absolute Neuts (auto) Absolute Lymphs (auto) Total Counted Sodium 144 Potassium 3.7 Chloride 111 H Carbon Dioxide 26.0 Anion Gap 7 BUN 8 Creatinine 0.76 0.76 Estim Creat Clear Calc 73.26 73.26 Est GFR (MDRD) Af Amer 104 103 Est GFR (MDRD) Non-Af 86 85 BUN/Creatinine Ratio 10.5 Glucose 124 H Calcium 8.1 L Total Bilirubin AST ALT Alkaline Phosphatase Total Protein Albumin Globulin Albumin/Globulin Ratio TSH 4.43 H orthopedics- Dr Cesar Rondon Operations: - - right femoral fracture repair (intramedullary nail placement) Summary of Care Provided: The patient is a 52 year old F with a history of hypothyroidism was admitted via the ED on 03/31/2018 with a complaint of left hip pain after she fell off her horse this morning in the hospital on her leg. Imaging done in the ED showed fracture of the right femur and she was admitted and managed for right femoral fracture. Orthopedics saw her and she had internal fixation of the right femoral fracture on 04/01/2018 with placement of intramedullary nail patient. Patient remained stable. She was seen and examined prior to discharge on 04/02/18-POD 1. She had no complaints and felt very well. Physical therapy was working with antiplatelet she was doing very good. She denies any fever or chills, any cough or chest pain, shortness of breath, abdominal pain, any diarrhea vomiting. Review of systems otherwise negative. General: Alert, Oriented x3, Cooperative, No apparent distress HEENT: Atraumatic, PERRLA, EOMI, Normocephalic Oral: Moist Mucosa Neck: Supple, No JVD, Negative Carotid Bruits Lungs: Clear to auscultation, Normal air movement Cardiovascular: Regular rate, Regular Rhythm, Normal S1, Normal S2, No murmurs Abdomen: Bowel Sounds Present, Soft, Non Tender, Non-Distended, No Hepato-splenomegaly Extremities: No clubbing, No cyanosis, No edema, Capillary Refill Less than 3 Seconds. Right DP and pT pulses palpable, able to wiggle toes of right foot. Skin: No rashes, No breakdown Musculoskeletal: - - RLE shortened, externally rotated, no visible swelling or erythema Lymphatic: No Cervical, Supraclavicular, or Inguinal Adenopathy Neurological: Cranial nerves II-XII grossly intact, Neuro grossly intact Psych/Mental Status: Normal Affect, Appropriate, Alert and oriented to time, place, person, mood and affect[] She is being discharged home today with home physical therapy. She is to take xarelto for 2 weeks for DVT prophylaxis-script E-scribed to [facility] by haleigh RODRIGUEZ. SHe is to follow up with PCP and orthopedic surgeon. Given a script for pain meds- tyleneol and Oxycodone by ortho. Discharge Diet: No Restrictions Discharge Activity: May Not Drive May shower in (days): 1 - Turned dressing away from water Ice area for (Minutes): 20 - Every 1-2 hours while awake Weight Bearing Status: Partial weight bearing - 50% weightbearing right lower extremity ?6 weeks Keep extremity elevated above heart level: Operative Extremity Call your doctor if your incision/area has: Continuous Slow Oozing, Sudden Increased Bleeding, Increased Pain/ Swelling, Increased Redness, Foul Smelling Discharge Call your doctor if you observe: Fever of 101 or Higher, Coldness, Increased Pain, Numbness or Tingling, Change in Color Remove Dressing in (days):: 4 - Okay to remove on April 06, 2018 Home Medications: Medications to take at Discharge Levothyroxine [Synthroid] 75 mcg PO DAILY 03/31/18 Acetaminophen [Tylenol] 1,000 mg PO Q8 #90 tab 04/02/18 Ondansetron HCl [Zofran] 4 mg PO Q8H PRN PRN #20 tab 04/02/18 Oxycodone [Oxyir] 5 mg PO Q4H PRN PRN 5 Days #60 tablet 04/02/18 Rivaroxaban [Xarelto] 10 mg PO DAILY@0600 #14 tab 04/02/18 Senna/Docusate Sodium [Senokot-S] 2 tab PO BID #20 tab 04/02/18 Following Prescrptions Were Given to Patient: Oxycodone [Oxyir] 5 mg PO Q4H PRN PRN 5 Days #60 tablet PRN Reason: Severe Pain (-07/02) Ondansetron HCl [Zofran] 4 mg PO Q8H PRN PRN #20 tab PRN Reason: Nausea/Vomiting Acetaminophen [Tylenol] 1,000 mg PO Q8 #90 tab Rivaroxaban [Xarelto] 10 mg PO DAILY@0600 #14 tab Senna/Docusate Sodium [Senokot-S] 2 tab PO BID #20 tab Primary Care Physician: Katelyn Richmond DO [Primary Care Provider] - Please follow up with your Primary Care Physician in: one week Please Follow Up With: Cesar Rondon MD When: Will need follow up in [address] Rondon or Nasir Campos PA-C Please Follow Up With: [facility] Outpatient therapy When: Saturday Additional Instructions: FABRIZIO hose for 2 weeks. Okay to take FABRIZIO hose off at night but must be on during the day. Do not submerge incisions under water for 4 weeks postoperatively Disposition: Home Minutes spent on discharge:: 35 Patient Condition:: Good Medical Necessity - Tobacco Use Smoking Status: Former smoker Tobacco Use: Non-smoker Meaningful Use Info Meaningful Use Diagnoses (Choose all that apply): None applicable Code Visit Inpatient E&M: 58393 Disch Hosp
--- NOTE | 2018-04-02 10:43 | DS.PCM_ITS ---
Discharge Date and Diagnosis - Problem List Patient Problems: Active and Suspected Problems (Last Updated 03/31/18 @ 17:36 by Cesar Rondon MD) Right femoral fracture (Acute) Date of Admission: 03/31/18 Date of Discharge: 04/02/18 - Primary Discharge Diagnosis Active and Suspected Problems (Last Updated 03/31/18 @ 17:36 by Cesar Rondon MD) Right femoral fracture (Acute) s/p surgery Hospital Course and Treatment Imaging Results: Diagnostic Data Chest X-Ray 03/31/18 10:07 IMPRESSION: Normal x-ray examination of the chest. Electronically Signed: Miguel Alexander MD at 10:59 EDT Tel [phone], Service support , Pelvis X-Ray 03/31/18 10:08 IMPRESSION: No fracture or dislocation is seen. Findings suggestive of a calcified fibroid uterus. Electronically Signed: Miguel Alexander MD at 10:59 EDT Tel [phone], Service support , Tibia/Fibula X-Ray 03/31/18 14:08 IMPRESSION: Suspected calf edema. Unremarkable tibia and fibula. Electronically Signed: Tirso Hall at 15:42 EDT Tel , Service support , Femur X-Ray 04/01/18 12:53 IMPRESSION: Status post internal fixation of a distal femoral fracture. Electronically Signed: Sonny Barnett DO at 17:05 EDT Tel [phone], Service support , Laboratory Tests 03/31/18 03/31/18 04/01/18 09:30 09:30 05:40 WBC 7.4 6.6 RBC 4.70 3.93 L Hgb 13.9 11.6 L Hct 41.5 35.0 L MCV 88.3 89.1 MCH 29.6 29.5 MCHC 33.5 33.1 RDW 13.2 13.5 RDW Differential 42.5 43.9 Plt Count 213 166 MPV 11.3 11.5 Immature Gran % (Auto) 0.400 Neut % (Auto) 73.7 H Lymph % (Auto) 18.7 L [place] % (Auto) 5.2 Eos % (Auto) 1.6 Baso % (Auto) 0.4 Absolute Neuts (auto) 5.5 Absolute Lymphs (auto) 1.39 Total Counted Not Reportable Sodium 143 Potassium 3.6 Chloride 106 Carbon Dioxide 29.0 Anion Gap 8 BUN 19 H Creatinine 0.99 Estim Creat Clear Calc 56.24 Est GFR (MDRD) Af Amer 77 Est GFR (MDRD) Non-Af 63 BUN/Creatinine Ratio 19.3 Glucose 151 H Calcium 8.8 Total Bilirubin 0.50 AST 33 ALT 32 Alkaline Phosphatase 74 Total Protein 7.3 Albumin 3.7 Globulin 3.6 Albumin/Globulin Ratio 1.0 TSH 04/01/18 04/02/18 04/02/18 05:40 05:10 05:10 WBC 8.6 RBC 3.27 L Hgb 9.5 L Hct 29.6 L MCV 90.5 MCH 29.1 MCHC 32.1 RDW 13.4 RDW Differential 43.1 Plt Count 165 MPV 11.8 Immature Gran % (Auto) Neut % (Auto) Lymph % (Auto) [place] % (Auto) Eos % (Auto) Baso % (Auto) Absolute Neuts (auto) Absolute Lymphs (auto) Total Counted Sodium 144 Potassium 3.7 Chloride 111 H Carbon Dioxide 26.0 Anion Gap 7 BUN 8 Creatinine 0.76 0.76 Estim Creat Clear Calc 73.26 73.26 Est GFR (MDRD) Af Amer 104 103 Est GFR (MDRD) Non-Af 86 85 BUN/Creatinine Ratio 10.5 Glucose 124 H Calcium 8.1 L Total Bilirubin AST ALT Alkaline Phosphatase Total Protein Albumin Globulin Albumin/Globulin Ratio TSH 4.43 H orthopedics- Dr Cesar Rondon Operations: - - right femoral fracture repair (intramedullary nail placement) Summary of Care Provided: The patient is a 52 year old F with a history of hypothyroidism was admitted via the ED on 03/31/2018 with a complaint of left hip pain after she fell off her horse this morning in the hospital on her leg. Imaging done in the ED showed fracture of the right femur and she was admitted and managed for right femoral fracture. Orthopedics saw her and she had internal fixation of the right femoral fracture on 04/01/2018 with placement of intramedullary nail patient. Patient remained stable. She was seen and examined prior to discharge on 04/02/18-POD 1. She had no complaints and felt very well. Physical therapy was working with antiplatelet she was doing very good. She denies any fever or chills, any cough or chest pain, shortness of breath, abdominal pain, any diarrhea vomiting. Review of systems otherwise negative. General: Alert, Oriented x3, Cooperative, No apparent distress HEENT: Atraumatic, PERRLA, EOMI, Normocephalic Oral: Moist Mucosa Neck: Supple, No JVD, Negative Carotid Bruits Lungs: Clear to auscultation, Normal air movement Cardiovascular: Regular rate, Regular Rhythm, Normal S1, Normal S2, No murmurs Abdomen: Bowel Sounds Present, Soft, Non Tender, Non-Distended, No Hepato- splenomegaly Extremities: No clubbing, No cyanosis, No edema, Capillary Refill Less than 3 Seconds. Right DP and pT pulses palpable, able to wiggle toes of right foot. Skin: No rashes, No breakdown Musculoskeletal: - - RLE shortened, externally rotated, no visible swelling or erythema Lymphatic: No Cervical, Supraclavicular, or Inguinal Adenopathy Neurological: Cranial nerves II-XII grossly intact, Neuro grossly intact Psych/Mental Status: Normal Affect, Appropriate, Alert and oriented to time, place, person, mood and affect[] She is being discharged home today with home physical therapy. She is to take xarelto for 2 weeks for DVT prophylaxis-script E-scribed to [facility] by haleigh RODRIGUEZ. SHe is to follow up with PCP and orthopedic surgeon. Given a script for pain meds- tyleneol and Oxycodone by ortho. Discharge Diet: No Restrictions Discharge Activity: May Not Drive May shower in (days): 1 - Turned dressing away from water Ice area for (Minutes): 20 - Every 1-2 hours while awake Weight Bearing Status: Partial weight bearing - 50% weightbearing right lower extremity ?6 weeks Keep extremity elevated above heart level: Operative Extremity Call your doctor if your incision/area has: Continuous Slow Oozing, Sudden Increased Bleeding, Increased Pain/ Swelling, Increased Redness, Foul Smelling Discharge Call your doctor if you observe: Fever of 101 or Higher, Coldness, Increased Pain, Numbness or Tingling, Change in Color Remove Dressing in (days):: 4 - Okay to remove on April 06, 2018 Home Medications: Medications to take at Discharge Levothyroxine [Synthroid] 75 mcg PO DAILY 03/31/18 Acetaminophen [Tylenol] 1,000 mg PO Q8 #90 tab 04/02/18 Ondansetron HCl [Zofran] 4 mg PO Q8H PRN PRN #20 tab 04/02/18 Oxycodone [Oxyir] 5 mg PO Q4H PRN PRN 5 Days #60 tablet 04/02/18 Rivaroxaban [Xarelto] 10 mg PO DAILY@0600 #14 tab 04/02/18 Senna/Docusate Sodium [Senokot-S] 2 tab PO BID #20 tab 04/02/18 Following Prescrptions Were Given to Patient: Oxycodone [Oxyir] 5 mg PO Q4H PRN PRN 5 Days #60 tablet PRN Reason: Severe Pain (-07/02) Ondansetron HCl [Zofran] 4 mg PO Q8H PRN PRN #20 tab PRN Reason: Nausea/Vomiting Acetaminophen [Tylenol] 1,000 mg PO Q8 #90 tab Rivaroxaban [Xarelto] 10 mg PO DAILY@0600 #14 tab Senna/Docusate Sodium [Senokot-S] 2 tab PO BID #20 tab Primary Care Physician: Katelyn Richmond DO [Primary Care Provider] - Please follow up with your Primary Care Physician in: one week Please Follow Up With: Cesar Rondon MD When: Will need follow up in [address] Rondon or Nasir Campos PA-C Please Follow Up With: [facility] Outpatient therapy When: Saturday Additional Instructions: FABRIZIO hose for 2 weeks. Okay to take FABRIZIO hose off at night but must be on during the day. Do not submerge incisions under water for 4 weeks postoperatively Disposition: Home Minutes spent on discharge:: 35 Patient Condition:: Good Medical Necessity - Tobacco Use Smoking Status: Former smoker Tobacco Use: Non-smoker Meaningful Use Info Meaningful Use Diagnoses (Choose all that apply): None applicable Code Visit Inpatient E&M: 91634 Disch Hosp
--- NOTE | 2018-04-02 11:33 | CASEMGMT ---
CM INITIAL ASSESSMENT: Home: Patient states she lives in a two story home with her boyfriend. Patient states she has first floor setup and three small steps into the home. There is a rail with these steps. HHS/Aides: Denies. DME: Patient states that her boyfriend is pickup up a walker for her. He may also get a shower chair. She will have her walker present at discharge. Home Oxygen: Denies. Pharmacy: [facility] Advance Directives: Denies. Declines assistance at this time. PCP: Katelyn Richmond DC Plan: Home. Patient is scheduled for her follow-up appt in two weeks. She will be setup for outpatient therapy. CM will continue to follow for safe and effective discharge planning.
== END 2018-04-02 15:05 | disposition home or self-care (01) | DRG 482 ==
LOC: ED 10:29 → MS3 12:00
PROVIDERS: Specialist; Admitting Provider Student in an Organized Health Care Education/Training Program; Emergency Provider Emergency Medicine; Family Provider Internal Medicine; PCP Internal Medicine; Visit Provider Student in an Organized Health Care Education/Training Program
PROC: 0QS836Z Reposition Right Femoral Shaft with Intramedullary Internal Fixation Device, Percutaneous Approach (ICD-10-PCS; CPT 27245; principal; 2018-04-01 11:05)
DX: S72.321A Displaced transverse fracture of shaft of right femur, initial encounter for closed fracture (principal); V80.010A Animal-rider injured by fall from or being thrown from horse in noncollision accident, initial encounter; Y93.52 Activity, horseback riding; W55.19XA Other contact with horse, initial encounter; E03.9 Hypothyroidism, unspecified
CPT/HCPCS: 36415; 71045; 72170; 73552; 73590; 76000; 80048; 80053; 82565; 84443; 85025; 85027; 93005; 97162; 97165; 99251; 99285; C1713; J7030; J7120; A4216; G0463; J2405

== ENCOUNTER 2018-06-04 06:30 | Day surgery (SDC) | payer BC, SELFPAY ==
--- NOTE | 2018-05-21 22:12 | PCM.HP.BLA ---
History and Physical DATE OF SURGERY: 06/04/2018 SCHEDULED PROCEDURE: Right knee screw removal, manipulation under anesthesia HISTORY OF PRESENT ILLNESS: This is a 52-year-old female who underwent a intramedullary nail retrograde right femur shaft fracture on April 01, 2018 after a horse landed on her. Patient has continued pain over the lateral knee. She has difficult time with range of motion. Patient initially was 50% weightbearing with crutches. She now is weightbearing as tolerated with crutches. She has been in formal physical therapy. She continues to struggle with range of motion. Patient does have pain and crepitus near the distal incision of the distal locking screw. She denies any numbness or tingling. X-rays show a prominent distal screw with a well-healing femur fracture at the metaphyseal diaphyseal junction with interval callus formation. Due to patient's pain over the distal locking screw as well as decreased motion Dr. Cesar Rondon would like to undergo a screw removal with manipulation. Patient currently denies any chest pain, shortness of breath, fevers chills, recent infections. She has no medical problems. REVIEW OF SYSTEMS: ROS: Const: Denies change in appetite, fever and weight change. CV: Denies chest pain, heart murmur and irregular heartbeat. Resp: Denies cough, pneumonia, shortness of breath, tuberculosis and wheezing. GI: Denies constipation, diarrhea, heartburn, nausea, rectal itching, bloody stools and vomiting. : Denies incontinence. Musculo: Denies leg swelling, pain, trouble walking and weakness. Skin: Reports tattoo, but denies Raynaud's and history of shingles. Neuro: Denies ambulatory dysfunction, dizziness, numbness/tingling and tremor. Psych: Denies anxiety, insomnia and stress. Andrew/Lymph: Denies anemia, bleeding/bruising tendency and past transfusion. Reviewed, no changes. PAST MEDICAL HISTORY: Advance Care Plan: No Advance Directives Effective Date: 04/14/2018 PMH: Medical Problems: No Current Problems Accidents: Fracture - FEMER FX 2018 Surgical Hx: RT [place] Femoral FX Surgery - (04/01/2018) [email or web address] Assistive Devices: Glasses Reviewed and updated. SOCIAL HISTORY: SH: Marital: .Occupation: Abrasive Worker.Work Status: Currently Working.Hand Dominance: Right-handed. Personal Habits: Cigarette Use: Never Smoked Cigarettes.Cigars: Never Smoked Cigars.Smokeless Tobacco: Never Used Smokeless Tobacco.E-Cigarette Use: Smoker, current status unknow.Alcohol: Occasionally.Drug Use: Denies Use.Enjoy Exercising: Exercises 1-3 X/Week. Reviewed, no changes. VITALS: Ht: 64 Wt: 157lb Wt k.215 BMI: 26.9 BP: 133/90 Pulse: 101 Resp: 16 T: 97.9 T: 36.6C ALLERGIES: Sulfa MEDICATIONS: Oxycodone HCL 5 mg 1-2 tab by mouth every 6 hours, Synthroid 75 mcg 1po qday, Tylenol Extra Strength 500 mg 2 by mouth every 8 hours, Senna Laxative 8.6 mg prn, Meloxicam 7.5 mg 1 by mouth twice a day PRE-OP EXAM: General appearance:NORMAL Other: Eyes: Conjunctivae and lids: NORMAL Pupils: ERR Ears, Nose, Mouth, and Throat: NORMAL Other: Inspection of lips, teeth and gums: NORMAL Other: Neck: Examination of neck: no masses noted. Respiratory: Assessment of respiratory effort: NORMAL Other: Auscultation of lungs: clear to auscultation no wheezes, rhonchi or rales. Cardiovascular: Auscultation of heart: regular rate and rhythm, no murmurs, gallops or rubs. Exam of carotid arteries: NORMAL Other: Gastrointestinal: Exam of abdomen: soft, nontender, nondistended bowel sounds present. PHYSICAL EXAMINATION: Incisions are well-healed with no erythema or signs of infection. Leg and knee is cool to touch without warmth. Range of motion of the right knee 0 of extension to 80 of flexion. There is crepitus and tenderness to palpation over the distal interlocking screw. Sensation intact to light touch. IMAGING STUDIES: X-rays were obtained on May 12, 2018 at [facility] which does reveal a prominent distal screw on the femur. There is well healing femur fracture at the metaphyseal diaphyseal junction with interval callus formation and healing noted. IMPRESSION: 1. Status post intramedullary nail retrograde right femur shaft fracture on April 01, 2018 2. Painful right knee at the distal interlocking screw with decreased motion PLAN: Dr. Rondon did discuss and review with the patient all treatment options including surgical versus nonsurgical options. Patient does wish to proceed with the above-stated procedure. Potential risks, benefits, and complications of the procedure were discussed in detail including but not limited to , infection, nerve and blood vessel damage, persistent pain, numbness, tingling, paresthesias, blood clot, pulmonary embolism, and requirement for possible further surgery. The patient expressed full understanding and has no further questions for the doctor. Patient does agree to proceed with the above-stated procedure and has signed the surgery consent form. ___ I have re-examined the patient. There are no clinical changes since date of exam. ___ See progress notes for changes. ___ Dictated on admission Date: Time: Signature:
[2018-06-04] VITALS (8 sets, daily range): BP systolic 138–160; BP diastolic 76–90; PULSE 88–140; RESP 16–18; TEMP 36.3–37.1; O2SAT 97–100; BMI 28.0
[2018-06-04] MEDS: Cefazolin 2 GM in 0.9% Normal Saline 100 ML IV (07:00)
[2018-06-04] MEDS: Ketorolac 30 MG/ML Syringe IV (07:26)
--- NOTE | 2018-06-04 08:35 | RAD_ITS ---
STUDY: X-RAY - RIGHT KNEE REASON FOR EXAM: Female, 52 years old. Screw removal. TECHNIQUE: 2 intraoperative view(s) of the knee. COMPARISON: Comparison is made with prior study dated April 01, 2018. FINDINGS: Intramedullary gaby fixation device is seen in the femur. The 2 screws in the distal portion of the gaby abdomen removed. The soft tissue structures are unremarkable. RAD/Knee 1 or 2 Views IMPRESSION: Removal of the distal femoral screws. Electronically Signed: Miguel Alexander MD at 10:27 EDT Tel [phone], Service support ,
--- NOTE | 2018-06-04 08:59 | PCM.OPRPT ---
Report of Operation Date of Procedure: 06/04/18 Pre-Operative Diagnosis: Right knee arthrofibrosis. Right knee painful hardware Post-Operative Diagnosis: Right knee arthrofibrosis. Right knee painful hardware Surgery/Procedure Performed:: 1. Removal of hardware right knee. 2. Manipulation under anesthesia right knee Description of Surgical Findings:: Both distal screws were removed. Knee range of motion went from [id number] driver retraining instructor: Zuly Miles Type of Anesthesia:: General Anesthesiologist: Stepan Wallace Special Medications: 2 g Ancef Specimen's removed: None Estimated Blood Loss (mL): 10 Fluids Replaced: 900 ml crystalloid Description of Procedure: On the date of the procedure patient's right lower extremity was marked in the in the preoperative area. Patient was taken back to the operating room where they were transferred to the table in the supine position. Anesthesia assumed control the C-spine airway and all bony prominences were identified well-padded. After anesthesia administered anesthetic bump was placed underneath the right hip and tourniquet was placed on the right upper thigh. At this time a timeout was called and when agreed upon the side, the site, and that she to be performed, patient identity and antibiotics given. The knee was examined and found to have range of motion 5-85. At this time the manipulation was performed. Knee was gently flexed and scar tissue was broken up. We were able to get flexion to 120?. Once this was performed the right lower exam he was prepped in a sterile fashion while the surgeon scrubbed. Upon reentering the room the right leg was draped in a standard orthopedic fashion. Previous marking was again confirmed. Previous incisions for distal locking screws were used for the incision. Stab incisions were made. Live fluoroscopy was used to appropriately identify and locate the distal locking screws. Both distal locking screws were removed under the guidance of fluoroscopy. Once both screws were completely removed live fluoroscopy was again taken and used to confirm that both screws were removed and that the nail is in appropriate position and not intra-articular. Wound was copiously irrigated out normal saline. Alfa were used to close the incisions. 20 cc of half percent bupivacaine with epinephrine were injected intra-articularly. Xeroform dressing was placed, compressive dressing was placed. Patient was awakened by anesthesia and transferred to PACU for recovery. Patient will begin physical therapy on an outpatient basis. She is weightbearing as tolerated activity as tolerated. Patient was instructed to take an aspirin daily for DVT prophylaxis. - Complications none - Admit VTE Documentation VTE Present on Admission: No VTE Mechan Device Prophylaxis: SCD's, Thigh High FABRIZIO Hose VTE Pharm Prophylaxis ordered?: Yes
[2018-06-04] MEDS: Bupiv/Epi 0.5% Mpf 30 ML Vial (09:02)
--- NOTE | 2018-06-04 09:04 | OP.PCM_ITS ---
Report of Operation Date of Procedure: 06/04/18 Pre-Operative Diagnosis: Right knee arthrofibrosis. Right knee painful hardware Post-Operative Diagnosis: Right knee arthrofibrosis. Right knee painful hardware Surgery/Procedure Performed:: 1. Removal of hardware right knee. 2. Manipulation under anesthesia right knee Description of Surgical Findings:: Both distal screws were removed. Knee range of motion went from [id number] consumer affairs specialist: Zuly Miles Type of Anesthesia:: General Anesthesiologist: Stepan Wallace Special Medications: 2 g Ancef Specimen's removed: None Estimated Blood Loss (mL): 10 Fluids Replaced: 900 ml crystalloid Description of Procedure: On the date of the procedure patient's right lower extremity was marked in the in the preoperative area. Patient was taken back to the operating room where they were transferred to the table in the supine position. Anesthesia assumed control the C-spine airway and all bony prominences were identified well- padded. After anesthesia administered anesthetic bump was placed underneath the right hip and tourniquet was placed on the right upper thigh. At this time a timeout was called and when agreed upon the side, the site, and that she to be performed, patient identity and antibiotics given. The knee was examined and found to have range of motion 5-85. At this time the manipulation was performed. Knee was gently flexed and scar tissue was broken up. We were able to get flexion to 120?. Once this was performed the right lower exam he was prepped in a sterile fashion while the surgeon scrubbed. Upon reentering the room the right leg was draped in a standard orthopedic fashion. Previous marking was again confirmed. Previous incisions for distal locking screws were used for the incision. Stab incisions were made. Live fluoroscopy was used to appropriately identify and locate the distal locking screws. Both distal locking screws were removed under the guidance of fluoroscopy. Once both screws were completely removed live fluoroscopy was again taken and used to confirm that both screws were removed and that the nail is in appropriate position and not intra-articular. Wound was copiously irrigated out normal saline. [place] were used to close the incisions. 20 cc of half percent bupivacaine with epinephrine were injected intra-articularly. Xeroform dressing was placed, compressive dressing was placed. Patient was awakened by anesthesia and transferred to PACU for recovery. Patient will begin physical therapy on an outpatient basis. She is weightbearing as tolerated activity as tolerated. Patient was instructed to take an aspirin daily for DVT prophylaxis. - Complications none - Admit VTE Documentation VTE Present on Admission: No VTE Mechan Device Prophylaxis: SCD's, Thigh High FABRIZIO Hose VTE Pharm Prophylaxis ordered?: Yes
== END 2018-06-04 11:17 | disposition home or self-care (01) ==
LOC: SDC 06:31 → AC 06:32
PROVIDERS: Family Provider Internal Medicine; PCP Internal Medicine; Visit Provider Specialist
PROC: (CPT 20680; principal; 2018-06-04 08:15)
DX: T84.84XA Pain due to internal orthopedic prosthetic devices, implants and grafts, initial encounter (principal); M24.661 Ankylosis, right knee; E06.9 Thyroiditis, unspecified; Z78.0 Asymptomatic menopausal state; Z79.899 Other long term (current) drug therapy
CPT/HCPCS: 01400; 20680; 27570; 73560; 76000; J7120; J2405

== ENCOUNTER → 2018-06-13 08:03 | Outpatient (CLI) | payer BC, SELFPAY ==
--- NOTE | 2018-06-13 08:06 | ECHOD_ITS ---
Reason For Study: PALPITATIONS Procedure This was a 2D Doppler, Color Flow transthoracic echocardiogram. The exam was of adequate technical quality. Exam performed in department. Left Ventricle Normal LV size. Left ventricular systolic function is normal. The estimated ejection fraction is 60 %. Transmitral doppler flow suggestive of impaired relaxation of left ventricle. No regional wall motion abnormalities noted. Right Ventricle Normal RV size. Normal systolic function. Atria Normal left atrium. Normal right atrium. No doppler evidence for ASD. Mitral Valve There is no mitral annular calcification. Normal mitral valve. Trivial mitral valve insufficiency. Tricuspid Valve Normal tricuspid valve. Trivial tricuspid valve insufficiency. Aortic Valve Trisinus/trileaflet aortic valve. Normal aortic valve. Pulmonic Valve The pulmonic valve is not well visualized. Great Vessels Normal sized aortic root. Pericardium/Pleural No pericardial effusion. MMode/2D Measurements & Calculations LVIDd: 4.1 cm IVSd: 0.92 cm Ao root diam: 2.7 cm LVIDs: 2.5 cm LVPWd: 0.90 cm LA dimension: 3.2 cm RVDd: 2.8 cm FS: 37.8 % LAV(MOD-bp): 32.3 ml LA A4 area: 13.4 cm2 RA A4 area: 10.5 cm2 LAV(MOD-bp) Indexed: 18.5 ml/m2 LAV(MOD-sp2): 29.9 ml LAV(MOD-sp4): 34.5 ml Doppler Measurements & Calculations MV E max jorge alberto: 68.6 cm/sec Lat Peak E' Jorge Alberto: 9.4 cm/sec Med Peak E' Jorge Alberto: 5.7 cm/sec MV A max jorge alberto: 90.7 cm/sec E/E' lat: 7.3 E/E' med: 12.1 MV E/A: 0.76 Ao V2 max: 138.0 cm/sec LV V1 max: 93.1 cm/sec PA V2 max: 93.0 cm/sec Ao max P.6 mmHg LV V1 max P.5 mmHg Interpretation Summary Left ventricular systolic function is normal. The estimated ejection fraction is 60 %. Trivial mitral valve insufficiency. Trivial tricuspid valve insufficiency. Transmitral doppler flow suggestive of impaired relaxation of left ventricle Ordering Physician: SIDDHARTHA Vasquez Referring Physician: Katelyn Richmond Performed By: Jolynn Young, RDCS, RVT
== END ==
PROVIDERS: Family Provider Internal Medicine; PCP Internal Medicine; Visit Provider Nurse Practitioner Gerontology
DX: R00.2 Palpitations (principal); R03.0 Elevated blood-pressure reading, without diagnosis of hypertension; R00.0 Tachycardia, unspecified
CPT/HCPCS: 93225; 93226; 93306

== ENCOUNTER → 2018-06-18 14:20 | Outpatient (CLI) | payer BC, SELFPAY ==
--- NOTE | 2018-06-18 14:22 | VDLE_ITS ---
Reason For Study: Calf Pain RIGHT LEFT GSV is normal. GSV is normal. CFV is compressible, spontaneous, phasic, CFV is compressible, spontaneous, phasic, competent and demonstrates normal competent, and demonstrates normal augmentation. augmentation. FV is compressible, spontaneous, phasic, FV is compressible, spontaneous, phasic, competent and demonstrates normal competent and demonstrates normal augmentation. augmentation. POP V is compressible, spontaneous, phasic, POP V is compressible, spontaneous, phasic, competent and demonstrates normal competent and demonstrates normal augmentation. augmentation. T/P Trunk is compressible. T/P Trunk is compressible. PTV is compressible. PTV is compressible. RT PerV is compressible. LT PerV is compressible. RT GastrocV is noncompressible and dilated. Procedure Exam performed in department. A preliminary report was called and/or faxed to Brianda LEVINE @ Dr. Richmond's office. Interpretation Summary Acute deep vein thrombosis is noted in the right gastrocnemius vein. The remainder of the right lower extremity deep venous system is patent and compressible. Deep veins of the left lower extremity are patent and compressible segmentally. There is no evidence of left lower extremity deep vein thrombosis. Valvular competence appears intact within the proximal deep venous systems bilaterally. The greater saphenous veins appear bilaterally patent and compressible segmentally. Ordering Physician: Katelyn Richmond Referring Physician: Katelyn Richmond Performed By: Rose Mary AGUILAR, RUPALI, Cecilia and Student
== END ==
PROVIDERS: Family Provider Internal Medicine; PCP Internal Medicine; Referring Provider Internal Medicine; Visit Provider Internal Medicine
DX: M79.661 Pain in right lower leg (principal)
CPT/HCPCS: 93970

== ENCOUNTER → 2018-06-18 16:38 | Outpatient (CLI) | payer BC, SELFPAY ==
--- NOTE | 2018-06-18 16:39 | CT_ITS ---
STUDY: CTA CHEST REASON FOR EXAM: Female, 52 years old. DVT, RECENT SURGERY/ HARDWARE REMOVAL TO FEMUR. DVT, TACHYCARDIA RADIATION DOSAGE (If Supplied By Facility): CTDIvol = ( 9.68 ) mGy, DLP = ( 449.56 ) mGycm TECHNIQUE: The examination was performed with the intravenous administration of 100ML ml of Isovue 300 contrast material. Post-processing of the angiographic images was performed, with multiplanar reformation and 3D reconstruction. Individualized dose optimization techniques were used for this CT. COMPARISON: CTAP 09.22.14. FINDINGS: There is a 2 mm right upper lobe nodule. Series 2 image 200. Normal enhancement of the main pulmonary artery and right and left pulmonary arteries. Normal enhancement of the bilateral peripheral pulmonary arteries. There is no demonstrated pulmonary embolism. Normal thoracic aorta and visualized great vessels. There is no demonstrated aortic dissection. Normal heart and pericardium. Normal mediastinum. Normal hilar regions. Normal visualized trachea and bronchi. The lungs are well expanded. Normal pulmonary parenchyma. Normal pleura. Normal chest wall structures. There are degenerative changes of thoracic spine. Stable hypodense mass in the liver. CT/CTA Chest W/WO Contrast IMPRESSION: Normal CTA chest examination, without a demonstrated pulmonary embolism or arterial dissection. Single 2 mm right upper lobe nodule. LUNG - RADS CATEGORY 2. Electronically Signed: Eduin West MD at 17:30 EDT , Service support ,
== END ==
PROVIDERS: Family Provider Internal Medicine; PCP Internal Medicine; Referring Provider Internal Medicine; Visit Provider Internal Medicine
DX: I82.409 Acute embolism and thrombosis of unspecified deep veins of unspecified lower extremity (principal)
CPT/HCPCS: 71275; Q9967

== ENCOUNTER → 2018-07-02 10:53 | Outpatient (CLI) | payer BC, SELFPAY ==
--- NOTE | 2018-07-02 10:56 | VDLE_ITS ---
Reason For Study: DVT RIGHT GSV is normal. CFV is compressible, spontaneous, phasic, competent and demonstrates normal augmentation. FV is compressible, spontaneous, phasic, competent and demonstrates normal augmentation. POP V is compressible, spontaneous, phasic, competent and demonstrates normal augmentation. T/P Trunk is compressible. PTV is compressible. RT PerV is compressible. Rt GastrocV remains dilated and noncompressible. No change from previous exam. Procedure Exam performed in department. A preliminary report was called and/or faxed to Dr. Richmond. Interpretation Summary Acute deep vein thrombosis is noted in the right gastrocnemius vein. The remainder of the right lower extremity deep venous system is patent and compressible. Valvular competence appears intact within the proximal deep venous system on the right . The right greater saphenous vein appears patent and compressible segmentally. There has been no change since a prior study on 06/18/2018. Ordering Physician: Katelyn Richmond Referring Physician: Katelyn Richmond Performed By: Adriane Simpson RVT and Student
== END ==
PROVIDERS: Family Provider Internal Medicine; PCP Internal Medicine; Referring Provider Internal Medicine; Visit Provider Internal Medicine
DX: I82.409 Acute embolism and thrombosis of unspecified deep veins of unspecified lower extremity (principal)
CPT/HCPCS: 93970

== ENCOUNTER → 2018-07-06 15:43 | Outpatient (CLI) | payer BC, SELFPAY ==
[2018-07-06 15:47] LABS: Bacteria 0 SEEN /hpf (None Seen); Mucous, Urine 0 SEEN /hpf (<or=2+)
[2018-07-06 15:57] LABS: Color, Urine Straw (Yellow); Glucose, Dipstick Normal (Normal); Ketone-Dipstick Negative (Negative); Leukocyte Esterase-Dipstick 500 /ul (Negative); Nitrite-Dipstick Negative (Negative); Occult Blood-Urine 250 /ul (Negative); Protein-Dipstick Negative (Negative); Urine Bilirubin Dipstick Negative (Negative); Urine Clarity Sl. Cloudy (Clear); Urine Urobilinogen Normal (Normal); Urine pH 6.5 (5.0 - 8.0)
[2018-07-06 16:09] LABS: Red Blood Cells-Urine 10-25 SEEN /hpf (0-5); Squamous Epithelial Cells - UA 0-5 SEEN /hpf (5-10); White Blood Cells 25-50 SEEN /hpf (0-5)
== END ==
PROVIDERS: Family Provider Internal Medicine; PCP Internal Medicine; Visit Provider Physician Assistant Medical
DX: R39.15 Urgency of urination (principal)
CPT/HCPCS: 81001; 87086; 87088; 87186

== ENCOUNTER → 2018-08-04 09:40 | Outpatient (CLI) | payer BC, SELFPAY ==
--- NOTE | 2018-08-04 09:43 | VDLE_ITS ---
Reason For Study: RLE DVT RIGHT GSV is normal. CFV is compressible, spontaneous, phasic, competent and demonstrates normal augmentation. FV is compressible, spontaneous, phasic, competent and demonstrates normal augmentation. POP V is compressible, spontaneous, phasic, competent and demonstrates normal augmentation. T/P Trunk is compressible. PTV is compressible. RT PerV is compressible. Gastroc is no longer dilated and is compressible with thickened cruz. Procedure Exam performed in department. A preliminary report was called and/or faxed to Dr. Richmond. <> Interpretation Summary Deep veins of the right lower extremity are patent and compressible segmentally. There is no evidence of right lower extremity deep vein thrombosis. Valvular competence appears intact within the proximal deep venous system on the right . The right greater saphenous vein appears patent and compressible segmentally. There appears to have been resolution of the acute deep vein thrombosis in the right gastrocnemius vein since a prior study on 07/02/2018. Ordering Physician: Katelyn Richmond Referring Physician: Katelyn Richmond Performed By: Rose Mary JEFF, Cecilia ZAPIEN and Student
== END ==
PROVIDERS: Family Provider Internal Medicine; PCP Internal Medicine; Referring Provider Internal Medicine; Visit Provider Internal Medicine
DX: I82.409 Acute embolism and thrombosis of unspecified deep veins of unspecified lower extremity (principal)
CPT/HCPCS: 93971

== ENCOUNTER → 2018-08-06 08:59 | Outpatient (CLI) | payer BC, SELFPAY ==
--- NOTE | 2018-08-06 09:17 | STE_ITS ---
Reason For Study: CHEST PAIN Stress Results Protocol: Dobutamine Maximum Predicted HR: 169 bpm Target HR: 144 bpm % Maximum Predicted HR: 92 % DurationHeart Rate Stage (mm:ss) (bpm) BP Dose BASELINE 100 137/78 STAGE 1 3:29 139 166/8610.00 STAGE 2 2:22 155 149/7320.00 RECOVERY 104 150/94 Stress Duration: 5:51 mm:ss Maximum Stress HR: 155 bpm Baseline Echocardiogram Findings The estimated ejection fraction is 65 %. Stress Echo Wall motion Data Resting WM Intermediate WM Stress WM Resting Wall Motion Wall Motion Stress No regional wall motion No regional wall motion abnormalities noted. abnormalities noted. EKG Data The baseline ECG displays normal sinus rhythm. The patient was titrated from 10 mcg to a maximum of 20 mcg of dobutamine during the stress. The maximum heart rate attained was 160 beats per minute. This was 94% of maximum predicted heart rate. During dobutamine infusion, there were no ST or T wave changes noted to suggest ischemia. No arrhythmias noted. No clinical angina was noted. Interpretation Summary The estimated ejection fraction is 65 %. Normal, adequate, dobutamine echocardiogram. Negative for ischemia by EKG and echocardiographic criteria. No anginal symptoms noted. No arrhythmias noted. Appropriate blood pressure response to dobutamine. Final LVEF is 75%. Test terminated due to attainment of target heart rate. No complications. Ordering Physician: Obed Santiago MD Referring Physician: Oebd Santiago MD Performed By: Cecilia Bazzi, JEFF, RVT
[2018-08-06 10:24] LABS: AST(SGOT) 21 U/L (15-37); Alanine Aminotransfer ALT/SGPT 34 U/L (13-56); Albumin, Serum 4.1 g/dL (3.2-5.0); Alkaline Phosphatase 98 U/L (45-117); Bilirubin, Direct 0.15 mg/dL (0.00-0.30); Cholesterol 237 mg/dL (200); Globulin 3.8 g/dL (2.2-4.2); High Density Lipoprotein 42 mg/dL; Protein, Total 7.9 g/dL (6.4-8.2); T4 Total, Thyroxin 11.1 ug/dL (4.8-13.9); Thyroid Stim Hormone (TSH) 0.41 uIU/mL (0.358-3.74); Triglycerides 181 mg/dL; Very Low Density Lipoprotein 36 mg/dL (5-40)
== END ==
PROVIDERS: Family Provider Internal Medicine; PCP Internal Medicine; Visit Provider Internal Medicine Cardiovascular Disease
DX: R07.9 Chest pain, unspecified (principal); R00.2 Palpitations; R00.0 Tachycardia, unspecified; E78.5 Hyperlipidemia, unspecified
CPT/HCPCS: 36415; 80061; 80076; 84436; 84443; 93017; 93350; J7040

== ENCOUNTER → 2018-08-06 09:09 | Outpatient (REF) | payer BC, SELFPAY | LOC: CVS 09:09 | PROVIDERS: Family Provider Internal Medicine; PCP Internal Medicine; Referring Provider Internal Medicine Cardiovascular Disease; Visit Provider Internal Medicine Cardiovascular Disease | DX: R00.0 Tachycardia, unspecified (principal) | CPT/HCPCS: 93270 ==

== ENCOUNTER 2018-09-12 11:30 | Outpatient (RCR) | payer BC, SELFPAY | END 2018-09-22 23:59 | LOC: NS 11:30 | PROVIDERS: Family Provider Internal Medicine; PCP Internal Medicine; Visit Provider Internal Medicine Cardiovascular Disease | DX: E66.3 Overweight (principal); Z68.28 Body mass index [BMI] 28.0-28.9, adult; E78.5 Hyperlipidemia, unspecified; R00.0 Tachycardia, unspecified; R00.2 Palpitations; Z71.3 Dietary counseling and surveillance | CPT/HCPCS: 97802; 97803; 99201; G0463 ==

== ENCOUNTER 2018-10-13 13:00 | Outpatient (RCR) | payer BC, SELFPAY ==
[2018-07-29 13:43] VITALS: BMI 28.8
== END 2018-10-23 23:59 ==
LOC: NS 13:00
PROVIDERS: Family Provider Internal Medicine; PCP Internal Medicine; Visit Provider Internal Medicine Cardiovascular Disease
DX: E66.3 Overweight (principal); Z68.28 Body mass index [BMI] 28.0-28.9, adult; E78.5 Hyperlipidemia, unspecified; R00.0 Tachycardia, unspecified; R00.2 Palpitations; Z71.3 Dietary counseling and surveillance
CPT/HCPCS: 97803

== ENCOUNTER → 2018-11-05 09:48 | Outpatient (CLI) | payer BC, SELFPAY ==
[2018-11-05 12:09] LABS: AST(SGOT) 21 U/L (15-37); Alanine Aminotransfer ALT/SGPT 30 U/L (13-56); Albumin, Serum 4.3 g/dL (3.2-5.0); Alkaline Phosphatase 89 U/L (45-117); Bilirubin, Direct 0.12 mg/dL (0.00-0.30); Cholesterol 212 mg/dL (200); Globulin 3.8 g/dL (2.2-4.2); High Density Lipoprotein 47 mg/dL; Protein, Total 8.1 g/dL (6.4-8.2); Triglycerides 98 mg/dL; Very Low Density Lipoprotein 20 mg/dL (5-40)
== END ==
PROVIDERS: Family Provider Internal Medicine; PCP Internal Medicine; Referring Provider Nurse Practitioner Family; Visit Provider Nurse Practitioner Family
DX: E78.5 Hyperlipidemia, unspecified (principal)
CPT/HCPCS: 36415; 80061; 80076

== ENCOUNTER 2018-11-11 12:15 | Outpatient (RCR) | payer BC, SELFPAY ==
[2018-07-29 13:43] VITALS: BMI 28.8
== END 2018-11-20 23:59 ==
LOC: NS 12:15
PROVIDERS: Family Provider Internal Medicine; PCP Internal Medicine; Visit Provider Internal Medicine Cardiovascular Disease
DX: E66.3 Overweight (principal); Z68.28 Body mass index [BMI] 28.0-28.9, adult; E78.5 Hyperlipidemia, unspecified; R00.0 Tachycardia, unspecified; R00.2 Palpitations; Z71.3 Dietary counseling and surveillance
CPT/HCPCS: 97803

== ENCOUNTER 2018-12-08 12:12 | Outpatient (RCR) | payer BC, SELFPAY ==
[2018-07-29 13:43] VITALS: BMI 28.8
== END 2018-12-21 23:59 ==
LOC: NS 12:12
PROVIDERS: Family Provider Internal Medicine; PCP Internal Medicine; Visit Provider Internal Medicine Cardiovascular Disease
DX: E66.3 Overweight (principal); Z68.28 Body mass index [BMI] 28.0-28.9, adult; E78.5 Hyperlipidemia, unspecified; R00.0 Tachycardia, unspecified; R00.2 Palpitations; Z71.3 Dietary counseling and surveillance
CPT/HCPCS: 97803

== ENCOUNTER 2019-01-14 12:15 | Outpatient (RCR) | payer SELFPAY ==
[2018-07-29 13:43] VITALS: BMI 28.8
== END 2019-01-20 23:59 ==
LOC: NS 12:15
PROVIDERS: Family Provider Internal Medicine; PCP Internal Medicine; Visit Provider Internal Medicine Cardiovascular Disease
DX: E66.3 Overweight (principal); Z68.28 Body mass index [BMI] 28.0-28.9, adult; E78.5 Hyperlipidemia, unspecified; R00.0 Tachycardia, unspecified; R00.2 Palpitations; Z71.3 Dietary counseling and surveillance
CPT/HCPCS: 97803

== ENCOUNTER 2019-01-28 11:48 | Outpatient (RCR) | payer SELFPAY ==
[2018-07-29 13:43] VITALS: BMI 28.8
== END 2019-02-20 23:59 ==
LOC: NS 11:48
PROVIDERS: Family Provider Internal Medicine; PCP Internal Medicine; Visit Provider Internal Medicine Cardiovascular Disease
DX: E66.3 Overweight (principal); Z68.28 Body mass index [BMI] 28.0-28.9, adult; E78.5 Hyperlipidemia, unspecified; R00.0 Tachycardia, unspecified; R00.2 Palpitations; Z71.3 Dietary counseling and surveillance
CPT/HCPCS: 97803

== ENCOUNTER 2019-03-03 12:08 | Outpatient (RCR) | payer SELFPAY ==
[2018-07-29 13:43] VITALS: BMI 28.8
[2019-02-27 14:05] VITALS: BMI 26.5
== END 2019-03-03 23:59 | disposition home or self-care (01) ==
LOC: NS 12:08
PROVIDERS: Family Provider Internal Medicine; PCP Internal Medicine; Visit Provider Internal Medicine Cardiovascular Disease
DX: E66.3 Overweight (principal); Z68.28 Body mass index [BMI] 28.0-28.9, adult; E78.5 Hyperlipidemia, unspecified; R00.0 Tachycardia, unspecified; R00.2 Palpitations; Z71.3 Dietary counseling and surveillance
CPT/HCPCS: 97803

== ENCOUNTER → 2019-06-25 16:10 | Outpatient (CLI) | payer BC, SELFPAY ==
[2019-02-27 14:05] VITALS: BMI 26.5
--- NOTE | 2019-06-25 16:15 | BI_ITS ---
MAMMOGRAPHY - BILATERAL SCREENING REASON FOR EXAM: Female, 53 years old. Routine annual screening examination. PERTINENT HISTORY: Non-contributory. TECHNIQUE: Digital bilateral breast flavio (3D mammographic acquisition) in the CC and MLO projections. 2-D mediolateral oblique (MLO) and craniocaudad (CC) views of both breasts were obtained. CAD: Full Field Digital Mammography with Computer Added Detection was performed. COMPARISON: Comparison is made with prior examination dated March 28, 2018 and March 19, 2017. FINDINGS: Breast Composition: The breasts are heterogeneously dense, which may obscure small masses. There are no dominant masses or suspicious calcifications. No other significant abnormalities are identified. There has been no significant change since the prior study. BI/SCREEN MAMM (CAD) W/FLAVIO BILAT IMPRESSION: Stable bilateral screening mammogram. Yearly follow-up mammogram recommended. (A) ASSESSMENT CATEGORY: BIRADS Category 1: Negative. A letter regarding these results will be sent to the patient by the facility within 30 days. Side port Approximately 10% of breast cancers are not detected by mammography. A normal mammogram should not delay biopsy of a clinically suspicious abnormality. [id number] Electronically Signed: Miguel Alexander, at 8:45 EDT , Service support ,
== END ==
PROVIDERS: Family Provider Internal Medicine; PCP Internal Medicine; Referring Provider Nurse Practitioner Women's Health; Visit Provider Nurse Practitioner Women's Health
DX: Z12.31 Encounter for screening mammogram for malignant neoplasm of breast (principal)
CPT/HCPCS: 77063; 77067

== ENCOUNTER → 2019-09-10 17:03 | Outpatient (CLI) | payer BC, SELFPAY ==
[2019-09-10 13:15] VITALS: BMI 26.5
[2019-09-18 04:07] LABS: HPV Genotype 16, Aptima Negative (Negative)
[2019-09-18 13:33] LABS: HPV APTIMA, High Risk Positive (Negative); HPV Genotype 18,45 Aptima Positive (Negative)
== END ==
PROVIDERS: Family Provider Internal Medicine; PCP Internal Medicine; Referring Provider Nurse Practitioner Women's Health; Visit Provider Nurse Practitioner Women's Health
DX: Z12.4 Encounter for screening for malignant neoplasm of cervix (principal)
CPT/HCPCS: 87624; 88175; G0145

== ENCOUNTER → 2019-09-22 10:03 | Outpatient (CLI) | payer BC, SELFPAY ==
[2019-09-10 13:15] VITALS: BMI 26.5
[2019-09-22 11:15] LABS: AST(SGOT) 20 U/L (15-37); Alanine Aminotransfer ALT/SGPT 33 U/L (13-56); Albumin, Serum 4.2 g/dL (3.2-5.0); Alkaline Phosphatase 65 U/L (45-117); Bilirubin, Direct 0.18 mg/dL (0.00-0.30); Cholesterol 228 mg/dL (200); Globulin 3.8 g/dL (2.2-4.2); High Density Lipoprotein 50 mg/dL; Triglycerides 124 mg/dL; Very Low Density Lipoprotein 25 mg/dL (5-40)
== END ==
PROVIDERS: Family Provider Internal Medicine; PCP Internal Medicine; Referring Provider Nurse Practitioner Family; Visit Provider Nurse Practitioner Family
DX: E78.5 Hyperlipidemia, unspecified (principal)
CPT/HCPCS: 36415; 80061; 80076

== ENCOUNTER → 2020-03-16 08:49 | Outpatient (CLI) | payer BC, SELFPAY ==
[2019-10-08 16:05] VITALS: BMI 25.7
[2020-03-16 09:50] LABS: AST(SGOT) 20 U/L (15-37); Alanine Aminotransfer ALT/SGPT 33 U/L (13-56); Albumin, Serum 3.8 g/dL (3.2-5.0); Alkaline Phosphatase 67 U/L (45-117); Bilirubin, Direct 0.15 mg/dL (0.00-0.30); Cholesterol 146 mg/dL (200); Globulin 3.5 g/dL (2.2-4.2); High Density Lipoprotein 45 mg/dL; Protein, Total 7.3 g/dL (6.4-8.2); Triglycerides 126 mg/dL; Very Low Density Lipoprotein 25 mg/dL (5-40)
== END ==
PROVIDERS: PCP Internal Medicine; Referring Provider Internal Medicine Cardiovascular Disease; Visit Provider Internal Medicine Cardiovascular Disease
DX: E78.5 Hyperlipidemia, unspecified (principal)
CPT/HCPCS: 36415; 80061; 80076

== ENCOUNTER → 2020-09-14 12:54 | Outpatient (CLI) | payer BC, SELFPAY ==
[2019-10-08 16:05] VITALS: BMI 25.7
[2020-05-05 12:08] VITALS: BMI 25.4
--- NOTE | 2020-09-14 12:56 | BI_ITS ---
MAMMOGRAPHY - BILATERAL SCREENING REASON FOR EXAM: Female, 55 years old. Routine annual screening examination. PERTINENT HISTORY: Non-contributory. TECHNIQUE: Digital bilateral breast flavio (3D mammographic acquisition) in the CC and MLO projections. 2-D mediolateral oblique (MLO) and craniocaudad (CC) views of both breasts were obtained. CAD: Full Field Digital Mammography with Computer Added Detection was performed. COMPARISON: Comparison is made with prior study done 06/25/2019 and 03/28/2018. FINDINGS: Breast Composition: The breasts are heterogeneously dense, which may obscure small masses. There are no dominant masses or suspicious calcifications. No other significant abnormalities are identified. There has been no significant change since the prior study. BI/SCREEN MAMM (CAD) W/FLAVIO BILAT IMPRESSION: Stable bilateral screening mammogram. Yearly follow-up mammogram recommended. (A) ASSESSMENT CATEGORY: BIRADS Category 1: Negative. A letter regarding these results will be sent to the patient by the facility within 30 days. Approximately 10% of breast cancers are not detected by mammography. A normal mammogram should not delay biopsy of a clinically suspicious abnormality. [id number] Electronically Signed: Miguel Alexander, at 13:39 EST , Service support ,
[2020-09-23 07:07] LABS: HPV Genotype 16, Aptima Negative (Negative)
[2020-09-24 09:48] LABS: HPV APTIMA, High Risk Positive (Negative); HPV Genotype 18,45 Aptima Negative (Negative)
== END ==
PROVIDERS: PCP Internal Medicine; Referring Provider Nurse Practitioner Women's Health; Visit Provider Nurse Practitioner Women's Health
DX: Z12.31 Encounter for screening mammogram for malignant neoplasm of breast (principal); Z12.4 Encounter for screening for malignant neoplasm of cervix
CPT/HCPCS: 77063; 77067; 87624; 88175; G0145

== ENCOUNTER → 2020-10-27 16:32 | Outpatient (CLI) | payer OTHER, SELFPAY ==
--- NOTE | 2020-10-27 | ECC_PTH ---
PATIENT: BRIAN DEL VALLE LOC: [facility] U#:[id number] AGE/SX: 60/F ROOM: RE10/27/[address]: Dr. Josie Low MD : 1965 BED: DIS: SPEC #: [id number] RECD: 10/27/20 16:28 STATUS: KINA LORI #: [id number] ASYA: 10/27/20 00:[address]: Josie Low DEPT: SURGICAL PATHOLOGY RECD BY: Veronica Baptiste ENTERED: 10/28/20 11:36 SP TYPE: BIPIN CORONA DR: Dr. Katelyn Richmond, Tissues: A - Endocervical B - Endocervical Procedures: Surgery Specimen Level IV HEADER OPERATION: Colposcopy PRE-OP DIAGNOSIS: HPV positive TISSUE SUBMITTED: A - ECC, B - 2 o'clock MICROSCOPIC DIAGNOSIS A. Endocervix, curettings: Scant strips of benign superficial endocervix. No evidence of dysplasia. B. Cervix at 2 o'clock, biopsy: Detached fragments of squamous epithelium with focal changes suspicious for HPV cytopathic effect. See comment. AM:sugar 10/31/2020 COMMENT B. Results from immunohistochemistry ([id number]) for surrogate HPV marker (p16) will be reported separately. MICROSCOPIC DESCRIPTION Slides are reviewed. GROSS DESCRIPTION A - Received in fixative is one container labeled with the patient's name and designated ECC. The specimen consists of multiple minute fragments of light sánchez soft tissue that in aggregate measure 1 x 0.2 x <0.1 cm. The specimen is totally submitted in one cassette. B - Received in fixative is one container labeled with the patient's name and designated 2 o'clock. The specimen consists of two irregular fragments of light sánchez soft tissue that in aggregate measure 0.3 x 0.2 x 0.1 cm. The specimen is totally submitted in one cassette. / AM:sugar 10/28/20 TC:4 CPT: 45961 x2
--- NOTE | 2020-10-27 | IMM_PTH ---
PATIENT: BRIAN DEL VALLE LOC: [facility] U#:[id number] AGE/SX: 60/F ROOM: RE10/27/[address]: Dr. Josie Low MD : 1965 BED: DIS: SPEC #: [id number] RECD: 10/31/20 12:32 STATUS: KINA REQ #: [id number] ASYA: 10/27/20 00:[address]: Josie Low DEPT: IMMUNOHISTOCHEMISTRY RECD BY: Nubia Gan ENTERED: 10/31/20 12:33 SP TYPE: IMMUNO OTHR DR: Dr. Katelyn Richmond DO Tissues: B - Uterine cervix, NOS Procedures: p16 (initial) KI-67 (add) PHYSICIAN & INSTITUTION [place] [address] SPECIMEN INFORMATION: Tissue Source: B - Cervix at 2 o'clock Clinical Info: HPV positive Specimen Number: [id number] CPT code: 68867, 18828 METHODOLOGY: Deparaffinized sections of prefer/formalin-fixed tissue or PAP/DQ stained slides are incubated with monoclonal/polyclonal antibodies/oligonucleotide probes. Localization is made via biotin free immunoperoxidase method. Appropriate controls are performed and reacted as expected. Results on target cell population are indicated in the following table: RESULTS: ANTIBODY / CLONE RESULT Block B P16 (E6H4) negative Ki-67 (30-9) negative These tests were developed and their performance characteristics determined by [facility]. They may not have been cleared or approved by the U.S. Food and Drug Administration. The FDA has determined that such clearance or approval is not necessary. The above immunohistochemical/dualISH markers are ordered and reviewed by the Pathologist. INTERPRETATION: B. Cervix at 2 o'clock, biopsy: No evidence of dysplasia. AM:sugar 11/01/2020
[2020-10-27 11:24] VITALS: BMI 26.6
== END ==
PROVIDERS: PCP Internal Medicine; Referring Provider Obstetrics & Gynecology; Visit Provider Obstetrics & Gynecology
DX: Z11.51 Encounter for screening for human papillomavirus (HPV) (principal)
CPT/HCPCS: 88305; 88341; 88342

== ENCOUNTER → 2020-11-22 07:04 | Outpatient (CLI) | payer OTHER, SELFPAY ==
[2020-11-07 15:44] VITALS: BMI 26.7
[2020-11-22 08:42] LABS: AST(SGOT) 23 U/L (15-37); Alanine Aminotransfer ALT/SGPT 30 U/L (13-56); Albumin, Serum 3.8 g/dL (3.2-5.0); Alkaline Phosphatase 64 U/L (45-117); Bilirubin, Direct 0.13 mg/dL (0.00-0.30); Cholesterol 151 mg/dL (200); Globulin 3.4 g/dL (2.2-4.2); High Density Lipoprotein 48 mg/dL; Protein, Total 7.2 g/dL (6.4-8.2); Triglycerides 106 mg/dL; Very Low Density Lipoprotein 21 mg/dL (5-40)
[2020-11-22 09:07] LABS: Absolute Lymphocyte Count 1.34 X10^3/uL (0.83-4.51); Absolute Neutrophil Count 2.3 X10^3/uL (2.0-7.7); Basophil# 0.05 X10^3/uL; Basophil% 1.2 % (0-1); Eosinophil# 0.29 X10^3/uL; Eosinophils% 6.7 % (0-5); Hematocrit 39.6 % (37-47); Hemoglobin 12.8 g/dL (12.0-15.0); Lymphocyte # 1.34 X10^3/ul (4.0); Lymphocyte % 31.1 % (19-41); Mean Corp Hgb Conc 32.3 g/dL (32-36); Mean Corpuscular Hgb 29.5 pg (27.0-32.0); Mean Corpuscular Volume 91.2 fL (81-99); Mean Platelet Vol. 11.7 fl (6.2-12.0); Monocyte# 0.31 X10^3/uL; Monocyte% 7.2 % (0-10); NRBC Flagged by Analyzer 0 % (0-5); Neutrophil # 2.31 X10^3/uL (2.7-7.7); Neutrophil % 53.6 % (47-70); Platelet Count 200 K/mm3 (150-450); RBC Distribution Width CV 13.2 % (11.6-14.6); RBC Distribution Width SD 44.4 fl (35.1-43.9); Red Blood Count 4.34 M/mm3 (4.2-5.4); White Blood Count 4.3 K/mm3 (4.4-11.0)
[2020-11-22 09:46] LABS: ALB/GLOB Ratio 1.3 RATIO (0.9-2.4); AST(SGOT) 22 U/L (15-37); Alanine Aminotransfer ALT/SGPT 30 U/L (13-56); Albumin, Serum 3.9 g/dL (3.2-5.0); Alkaline Phosphatase 64 U/L (45-117); Anion Gap 6 (5-15); BUN 16 mg/dL (7-18); Chloride 110 mmol/L (98-107); EST Glomerular Filtration Rate 80 mL/min (>60); Est Glom Filt Rate - Afr Amer 96 mL/min (>60); Globulin 3.1 g/dL (2.2-4.2); Glucose 89 mg/dL (74-106); Potassium 4.1 mmol/L (3.5-5.1); Sodium Level 144 mmol/L (136-145); Thyroid Stim Hormone (TSH) 1.07 uIU/mL (0.358-3.74)
== END ==
PROVIDERS: PCP Internal Medicine; Referring Provider Physician Assistant Medical; Visit Provider Physician Assistant Medical
DX: E03.9 Hypothyroidism, unspecified (principal); R00.0 Tachycardia, unspecified
CPT/HCPCS: 36415; 80053; 80061; 80076; 84443; 85025

== ENCOUNTER → 2021-09-01 07:02 | Outpatient (CLI) | payer OTHER, SELFPAY ==
[2021-09-01 09:04] LABS: Absolute Lymphocyte Count 1.34 X10^3/uL (0.83-4.51); Absolute Neutrophil Count 2.6 X10^3/uL (2.0-7.7); Basophil# 0.04 X10^3/uL; Basophil% 0.9 % (0-1); Eosinophil# 0.22 X10^3/uL; Eosinophils% 4.9 % (0-5); Hematocrit 39.4 % (37-47); Hemoglobin 12.9 g/dL (12.0-15.0); Lymphocyte # 1.34 X10^3/ul (0.83-4.51); Lymphocyte % 29.6 % (19-41); Mean Corp Hgb Conc 32.7 g/dL (32-36); Mean Corpuscular Hgb 29.5 pg (27.0-32.0); Mean Corpuscular Volume 90.2 fL (81-99); Mean Platelet Vol. 11.7 fl (6.2-12.0); Monocyte# 0.37 X10^3/uL; Monocyte% 8.2 % (0-10); NRBC Flagged by Analyzer 0 % (0-5); Neutrophil # 2.55 X10^3/uL (2.7-7.7); Neutrophil % 56.4 % (47-70); Platelet Count 213 K/mm3 (150-450); RBC Distribution Width CV 13.2 % (11.6-14.6); RBC Distribution Width SD 43.5 fl (35.1-43.9); Red Blood Count 4.37 M/mm3 (4.2-5.4); White Blood Count 4.5 K/mm3 (4.4-11.0)
[2021-09-01 09:34] LABS: AST(SGOT) 18 U/L (15-37); Alanine Aminotransfer ALT/SGPT 30 U/L (13-56); Albumin, Serum 3.8 g/dL (3.2-5.0); Alkaline Phosphatase 62 U/L (45-117); Anion Gap 7 (5-15); BUN 19 mg/dL (7-18); BUN/Creat Ratio 23.2 RATIO (10-20); Calcium,Total 9.3 mg/dL (8.5-10.1); Chloride 106 mmol/L (98-107); Cholesterol 144 mg/dL (200); Creatinine, Serum 0.82 mg/dL (0.55-1.02); EST Glomerular Filtration Rate 77 mL/min (>60); Est Glom Filt Rate - Afr Amer 93 mL/min (>60); Globulin 3.8 g/dL (2.2-4.2); Glucose 90 mg/dL (74-106); High Density Lipoprotein 46 mg/dL; Potassium 3.9 mmol/L (3.5-5.1); Protein, Total 7.6 g/dL (6.4-8.2); Sodium Level 143 mmol/L (136-145); Thyroid Stim Hormone (TSH) 0.25 uIU/mL (0.358-3.74); Triglycerides 80 mg/dL; Very Low Density Lipoprotein 16 mg/dL (5-40)
== END ==
PROVIDERS: PCP Internal Medicine; Referring Provider Internal Medicine; Visit Provider Internal Medicine
DX: E03.9 Hypothyroidism, unspecified (principal); E78.00 Pure hypercholesterolemia, unspecified; R00.2 Palpitations
CPT/HCPCS: 36415; 80053; 80061; 84443; 85025

== ENCOUNTER → 2021-09-20 12:16 | Outpatient (CLI) | payer OTHER, SELFPAY ==
--- NOTE | 2021-09-20 12:18 | BI_ITS ---
MAMMOGRAPHY - BILATERAL SCREENING 3-D TOMOSYNTHESIS REASON FOR EXAM: Female, 56 years old. breast cancer screening PERTINENT HISTORY: No significant family history. TECHNIQUE: 2-D mammograms and 3-D Tomosynthesis of the breast (s) were performed. CAD was performed. COMPARISON: 09/14/2020 FINDINGS: The breast composition is heterogeneously dense that can obscure small breast masses. Scattered benign calcifications are seen. No dense spiculated masses or suspicious microcalcifications are identified. No architectural distortion is identified. There is no skin thickening or retraction. There has been no significant change since the prior study. BI/SCRN MAMM (CAD)W/FLAVIO BILAT IMPRESSION: No mammographic signs of malignancy. Routine yearly mammograms recommended. ASSESSMENT CATEGORY: BIRADS Category 1: Negative. A letter regarding these results will be sent to the patient by the facility within 30 days. FOLLOW UP RECOMMENDATION: Yearly follow up mammogram recommended. (A) Approximately 10% of breast cancers are not detected by mammography. A normal mammogram should not delay biopsy of a clinically suspicious abnormality. Electronically Signed: Tirso Osborne MD at 13:37 EST Tel , Service support ,
[2021-09-26 22:06] LABS: HPV Genotype 16, Aptima Negative (Negative)
[2021-09-27 14:09] LABS: HPV APTIMA, High Risk Positive (Negative); HPV Genotype 18,45 Aptima Negative (Negative)
== END ==
PROVIDERS: PCP Internal Medicine; Referring Provider Nurse Practitioner Women's Health; Visit Provider Nurse Practitioner Women's Health
DX: Z12.31 Encounter for screening mammogram for malignant neoplasm of breast (principal); Z12.4 Encounter for screening for malignant neoplasm of cervix
CPT/HCPCS: 77063; 77067; 87624; 88175; G0145

== ENCOUNTER 2021-10-12 15:39 | Outpatient (CLI) | payer BC, SELFPAY ==
--- NOTE | 2021-10-12 | IMM_PTH ---
PATIENT: BRIAN DEL VALLE LOC: [facility] U#:[id number] AGE/SX: 56/F ROOM: RE10/12/[address]: Dr. Jessica Cr DO : 1965 BED: DIS: 10/12/2021 SPEC #: [id number] RECD: 10/16/21 12:41 STATUS: KINA REQ #: [id number] ASYA: 10/12/21 00:[address]: Jessica Cr DEPT: IMMUNOHISTOCHEMISTRY RECD BY: Nubia Gan ENTERED: 10/16/21 12:42 SP TYPE: IMMUNO OTHR DR: Dr. Katelyn Richmond DO Tissues: A - Endocervical B - Uterine cervix, NOS Procedures: p16 (initial) KI-67 (add) PHYSICIAN & INSTITUTION [place] [address] SPECIMEN INFORMATION: Tissue Source: A ? ECC, B ? Cervix 12 o?clock Clinical Info: HPV positive Specimen Number: [id number] A & B CPT code: 64223, 92549 x3 METHODOLOGY: Deparaffinized sections of prefer/formalin-fixed tissue or PAP/DQ stained slides are incubated with monoclonal/polyclonal antibodies/oligonucleotide probes. Localization is made via biotin free immunoperoxidase method. Appropriate controls are performed and reacted as expected. Results on target cell population are indicated in the following table: RESULTS: ANTIBODY / CLONE RESULT Block A P16 (E6H4) negative Ki-67 (30-9) positive, very low Block B P16 (E6H4) positive, focal block staining Ki-67 (30-9) positive, low These tests were developed and their performance characteristics determined by [facility]. They may not have been cleared or approved by the U.S. Food and Drug Administration. The FDA has determined that such clearance or approval is not necessary. The above immunohistochemical/dualISH markers are ordered and reviewed by the Pathologist. INTERPRETATION: A. ECC: Negative for dysplasia. B. Cervix at 12 o?clock, biopsy: Focal moderate squamous dysplasia. SJ:sugar 10/17/2021 Case has been reviewed in consultation with Dr. Thomas who concurs with the above diagnosis. IDC:AM
--- NOTE | 2021-10-12 14:00 | CER_PTH ---
PATIENT: BRIAN DEL VALLE LOC: [facility] U#:[id number] AGE/SX: 56/F ROOM: RE10/12/[address]: Dr. Jessica Cr DO : 1965 BED: DIS: 10/12/2021 SPEC #: [id number] RECD: 10/12/21 15:31 STATUS: KINA LORI #: [id number] ASYA: 10/12/21 14:[address]: Jessica Cr DEPT: SURGICAL PATHOLOGY RECD BY: Abbey Almonte ENTERED: 10/13/21 11:19 SP TYPE: CERV OTHR DR: Dr. Katelyn Richmond, Tissues: A - Endocervical B - Uterine cervix, NOS Procedures: Surgery Specimen Level IV HEADER OPERATION: Colposcopy PRE-OP DIAGNOSIS: HPV positive TISSUE SUBMITTED: A ? ECC, B ? 12 o?clock MICROSCOPIC DIAGNOSIS A. ECC: Scant fragments of benign ecto- and endocervical epthelium, negative for dysplasia. See comment. B. Cervix, 12 o?clock, biopsy: Focal moderate squamous dysplasia with changes suspicious for HPV cytopathic effects (HGSIL, JANEL II). See comment. SJ:rg 10/16/2021 COMMENT A. Immunohistochemistry ([id number]) for surrogate HPV marker (p16) supports the above diagnosis. B. The specimen predominantly consists of squamous epithelium. Immunohistochemistry ([id number]) for surrogate HPV marker (p16) supports the above diagnosis. This case has been reviewed in consultation with Dr. Thomas who concurs with the above diagnosis. MICROSCOPIC DESCRIPTION Slides are reviewed. GROSS DESCRIPTION A - Received in fixative is one container labeled with the patient's name and designated ECC. The specimen consists of a scant amount of soft tissue. The specimen is totally submitted for cell block preparation. B - Received in fixative is one container labeled with the patient's name and designated 12 o'clock cervix. The specimen consists of minute fragments of sánchez soft tissue that in aggregate measure 0.2 x 0.1 x 0.1 cm. The specimen is totally submitted in one cassette. / TORREY:sugar 10/13/2021 TC:5 CPT: 97869 x2
== END 2021-10-12 23:59 | disposition home or self-care (01) ==
LOC: LABSPEC 15:40
PROVIDERS: PCP Internal Medicine; Visit Provider Obstetrics & Gynecology
DX: N87.1 Moderate cervical dysplasia (principal)
CPT/HCPCS: 88305; 88341; 88342

== ENCOUNTER 2021-10-26 07:24 | Outpatient (CLI) | payer BC, SELFPAY ==
[2021-10-26 09:07] LABS: AST(SGOT) 24 U/L (15-37); Alanine Aminotransfer ALT/SGPT 47 U/L (13-56); Albumin, Serum 3.8 g/dL (3.2-5.0); Alkaline Phosphatase 83 U/L (45-117); Bilirubin, Direct 0.09 mg/dL (0.00-0.30); Cholesterol 161 mg/dL (200); High Density Lipoprotein 36 mg/dL; Protein, Total 7.8 g/dL (6.4-8.2); Triglycerides 147 mg/dL; Very Low Density Lipoprotein 29 mg/dL (5-40)
== END 2021-10-26 23:59 | disposition short-term general hospital (02) ==
LOC: LAB 07:26
PROVIDERS: PCP Internal Medicine; Referring Provider Internal Medicine Cardiovascular Disease; Visit Provider Internal Medicine Cardiovascular Disease
DX: E78.5 Hyperlipidemia, unspecified (principal); E78.00 Pure hypercholesterolemia, unspecified
CPT/HCPCS: 36415; 80061; 80076

== ENCOUNTER 2021-11-28 08:31 | Day surgery (SDC) | payer BC, SELFPAY ==
[2021-11-27 13:34] LABS: Absolute Lymphocyte Count 1.79 X10^3/uL (0.83-4.51); Absolute Neutrophil Count 4.4 X10^3/uL (2.0-7.7); Basophil# 0.05 X10^3/uL; Basophil% 0.7 % (0-1); Eosinophil# 0.31 X10^3/uL; Eosinophils% 4.4 % (0-5); Hematocrit 40.6 % (37-47); Hemoglobin 13.3 g/dL (12.0-15.0); Lymphocyte # 1.79 X10^3/ul (0.83-4.51); Lymphocyte % 25.5 % (19-41); Mean Corp Hgb Conc 32.8 g/dL (32-36); Mean Corpuscular Hgb 29.1 pg (27.0-32.0); Mean Corpuscular Volume 88.8 fL (81-99); Mean Platelet Vol. 11.5 fl (6.2-12.0); Monocyte# 0.51 X10^3/uL; Monocyte% 7.3 % (0-10); NRBC Flagged by Analyzer 0 % (0-5); Neutrophil # 4.35 X10^3/uL (2.7-7.7); Neutrophil % 61.8 % (47-70); Platelet Count 238 K/mm3 (150-450); RBC Distribution Width CV 13.6 % (11.6-14.6); RBC Distribution Width SD 44.3 fl (35.1-43.9); Red Blood Count 4.57 M/mm3 (4.2-5.4)
--- NOTE | 2021-11-28 | CER_PTH ---
PATIENT: BRIAN DEL VALLE [place] [facility] [place] U#:[id number] AGE/SX: 56/F ROOM: RE11/28/[address]: Dr. Jessica Cr DO : 1965 BED: DIS: 11/28/2021 SPEC #: [id number] RECD: 11/28/21 12:53 STATUS: KINA SANDOVAL #: [id number] ASYA: 11/28/21 00:[address]: Jessica Cr DEPT: SURGICAL PATHOLOGY RECD BY: Rohit Meng ENTERED: 11/29/21 10:16 SP TYPE: CERV OTHR DR: Dr. Katelyn Richmond DO Tissues: UTERINE CERVIX LEEP Procedures: Surgery Specimen Level V HEADER OPERATION: LEEP cone PRE-OP DIAGNOSIS: JANEL II TISSUE SUBMITTED: Cervical biopsy MICROSCOPIC DIAGNOSIS Cervix, LEEP conization: Focal mild squamous dysplasia changes with HPV changes (LGSIL, JANEL I). Resection margins are free of dysplastic changes. See comment. TORREY:sugar 11/30/2021 COMMENT Immunohistochemistry ([id number]) for surrogate HPV marker (p16) supports the above diagnosis. Please make reference to previous specimen ([id number]) cervix, 12 o?clock, biopsy with diagnosis of ?focal moderate squamous dysplasia.? MICROSCOPIC DESCRIPTION Slides are reviewed. GROSS DESCRIPTION Received in fixative is one container labeled with the patient's name and designated cervical biopsy. The specimen consists of a piece of sánchez, indurated tissue consistent with cervical LEEP conization measuring 2 x 1.8 cm and up to 1 cm in length. No mucosal lesion is identified. Nonmucosal surface is inked black. The endocervical margin is inked blue. The specimen is not oriented. Also present in the container are two pieces of detached indurated tissue measuring in aggregate 1 x 0.5 x 0.2 cm. The specimen is radially sectioned. The specimen is submitted in four cassettes with each cassette containing one quadrant. Cassette 1 also contains the detached pieces of tissue. / TORREY:sugar 11/29/2021 TC:5 CPT: 45579
--- NOTE | 2021-11-28 | IMM_PTH ---
PATIENT: BRIAN DEL VALLE LOC: [facility] [place] U#:[id number] AGE/SX: 56/F ROOM: RE11/28/[address]: Dr. Jessica Cr DO : 1965 BED: DIS: 11/28/2021 SPEC #: [id number] RECD: 11/30/21 11:44 STATUS: KINA REQ #: [id number] ASYA: 11/28/21 00:[address]: Jessica Cr DEPT: IMMUNOHISTOCHEMISTRY RECD BY: Nubia Gan ENTERED: 11/30/21 11:45 SP TYPE: IMMUNO OTHR DR: Dr. Katelyn Richmond DO Tissues: Uterine cervix, NOS Procedures: p16 (initial) KI-67 (add) P16 (add) PHYSICIAN & INSTITUTION [place] [address] SPECIMEN INFORMATION: Tissue Source: Cervical biopsy Clinical Info: JANEL II Specimen Number: [id number] #1-4 [facility] code: 06739, 33156 x7 METHODOLOGY: Deparaffinized sections of prefer/formalin-fixed tissue or PAP/DQ stained slides are incubated with monoclonal/polyclonal antibodies/oligonucleotide probes. Localization is made via biotin free immunoperoxidase method. Appropriate controls are performed and reacted as expected. Results on target cell population are indicated in the following table: RESULTS: ANTIBODY / CLONE RESULT Block 1 P16 (E6H4) positive, patchy and focal Ki-67 (30-9) positive, basal layers only Block 2 P16 (E6H4) positive, patchy and focal Ki-67 (30-9) positive, basal layers only Block 3 P16 (E6H4) negative Ki-67 (30-9) positive, very low Block 4 P16 (E6H4) positive, patchy and focal Ki-67 (30-9) positive, very low These tests were developed and their performance characteristics determined by [facility]. They may not have been cleared or approved by the U.S. Food and Drug Administration. The FDA has determined that such clearance or approval is not necessary. The above immunohistochemical/dualISH markers are ordered and reviewed by the Pathologist. INTERPRETATION: Cervix, LEEP conization: Focal mild squamous dysplasia with HPV changes. TORREY:sugar 12/01/2021
--- NOTE | 2021-11-28 07:20 | HP.PCM_ITS ---
History and Physical Date of Admission: 11/28/21 MR#:[id number]:[id number]: BRIAN SANTOYO LYNNRep #:[id number] Provider:Dr. Jessica Cr, DOAge/Sex: 56/F [facility] Vital Signs 11/08/21 13:10 Height 5 ft 3 in Weight: 152 lb 6 oz BMI 26.9 BP 124/86 H Intake Visit Reasons: LEEP consult Casino [employer] Required: No Is patient in pain?: No Allergies amoxicillin Allergy (Unknown, Verified 11/08/21 13:10) unknown Sulfa (Sulfonamide Antibiotics) Allergy (Verified 11/08/21 13:10) Rash Medications omeprazole 10 mg capsule,delayed release 10 mg PO DAILY 09/20/21 [History Confirmed 11/08/21] metoprolol succinate 25 mg tablet,extended release 24 hr 25 mg PO DAILY #90 tab 10/24/21 [Rx Confirmed 11/08/21] levothyroxine 50 mcg capsule 50 mcg PO DAILY 10/31/21 [History Confirmed 11/08/21] simvastatin 20 mg tablet 20 mg PO QHS #90 tab 11/07/21 [Rx Confirmed 11/08/21] Post menopausal: No Patient : No : No PFSH Medical History JANEL II (cervical intraepithelial neoplasia II) Hyperlipidemia Hypothyroidism Knee pain Palpitations Right femoral fracture Right leg DVT Tachycardia Surgical History Fracture, femur Family History Father Hypertension Other Diabetes Social History Smoking Status: Former smoker alcohol intake: current details: occasionally substance use type: does not use caffeine: Yes what type of physical activity do you participate in: other details: PT frequency: 3-4 times per week seatbelt use: always do you feel safe at home: Yes additional social history: -[employer] HPI LEEP consult Details: BRIAN SANTOYO is a 56 year old who presents for colp results of moderate dysplasia (JANEL 2). She is here for discussion about leep procedure Pregancy History 1 Elective abortions Hx Para 1 Spontaneous abortions Hx # Term Pregnancies Ectopic pregnancies Hx # Pregnancies Multiple births # of living children Past Pregnancies Del. Date Name GA/Weeks Outcome Route Bth Weight Infant Gen Labor Lgth Anesthesia Del Locatn Provider FOB Unknown 1991 Ezra Baldwin ROS Const ROS Unobtainable: All systems reviewed & are unremarkable except as noted in H Resp Resp: Reports system reviewed and no additional complaints, except as documented; Denies cough GI GI: Reports as per HPI : Reports system reviewed and no additional complaints, except as documented Psych Psych: Reports system reviewed and no additional complaints, except as documented Exam Const General: cooperative, healthy appearing, comfortable and no acute distress Resp Effort & Inspection: normal respiratory effort Skin General: no rashes or lesions noted Psych Appearance: grossly normal Speech and Movement: speech and movement normal Coding Level of Care Code Off vis,est,level 4 Diagnoses JANEL II (cervical intraepithelial neoplasia II) N87.1 Assessment and Plan Assessment and Plan (1) JANEL II (cervical intraepithelial neoplasia II): Status: Acute Plan - Dr. Jessica Cr DO: plan for LEEP procedure at the hospital under mac anesthesia. pt states that she gets queasy with anesthesia and is requesting antiemetics marina or to the procedure. procedure is planned for November 28. Consent form signed after discussion of risks, benefits, and alternatives. UPDATE- I have seen the patient and performed any clinically relevant updates to the history and physical exam. Jessica Cr DO
[2021-11-28] MEDS: Lactated Ringers 1,000 ML 15 ML IV (08:45)
[2021-11-28 09:01] VITALS: BP 134/84; PULSE 74; RESP 18; TEMP 36.3; O2SAT 100; BMI 26.9
[2021-11-28 09:09] LABS: Internal QC Validated? YES +Cl - CLEAR BKGD; Pregnancy, Urine Negative Negative
[2021-11-28] MEDS: Lidocaine 2% /Epi 1:100 (50ml) 50 ML Vial (10:40)
[2021-11-28] MEDS: FERRIC SUBSULFATE 8 GM SOLN (10:40)
[2021-11-28 10:50] VITALS: BP 127/73; BP 134/84; PULSE 100; RESP 18; TEMP 36.6; O2SAT 98
[2021-11-28 10:55] VITALS: BP 134/84; BP 137/75; PULSE 105; RESP 16; O2SAT 96
[2021-11-28 11:00] VITALS: BP 133/73; BP 134/84; PULSE 96; RESP 16; O2SAT 98
--- NOTE | 2021-11-28 11:04 | OP.PCM_ITS ---
Problems Associated Problem List Diagnoses (1) JANEL II (cervical intraepithelial neoplasia II): (2) Positive test for human papillomavirus (HPV): Report of Operation Date of Procedure: 11/28/21 Pre-Operative Diagnosis: JANEL II Post-Operative Diagnosis: JANEL II Surgery/Procedure Performed:: Loop electrocautery excisional procedure of the cervix Description of Surgical Findings:: normal cervix with exception of some scar tissue on the outer os; and normal vagina Surgeon: Jessica Cr technical marketing consultant: None Type of Anesthesia: MAC and Topical Anesth Anesthesiologist: Stepan Wallace Specimen's removed: cervical biopsy Drains: none Estimated Blood Loss (mL): 3cc Description of Procedure: Patient was taken to the operating room and placed under MAC anesthesia prepped and draped in normal sterile fashion the dorsal lithotomy position. Paracervical block was placed with 2% lidocaine with epinephrine and using a loop electrode the outer part of the cervix was removed including the squamocolumnar junction. The cervix was cauterized around the borders and the base to obtain excellent hemostasis. Monsel's paste was placed and patient was awoken and taken recovery in stable condition. Complications none Admit VTE Documentation VTE Present on Admission: Yes VTE Mechan Device Prophylaxis: SCD's VTE Pharm Prophylaxis ordered?: No Reason prophylaxis not ordered:: Procedure Not Indicated Multi Select Codes Urinary/Genital Urinary/Genital CPT Codes: 53377 LEEP
[2021-11-28 11:05] VITALS: BP 134/84; PULSE 94; RESP 16; O2SAT 99
--- NOTE | 2021-11-28 11:42 | PCM.DC ---
Discharge Instructions Diet Discharge Diet: No restrictions Activity Discharge Activity: Return to Normal Activity and [address] (while taking narcotic pain mediations.) May resume sexual activity in: 4 weeks (Nothing in the vagina for 4 weeks.) Dressing / Incision Call your doctor if you observe: Fever of 101 or Higher and Using more than 1 pad per hour Follow Up Care Please Follow Up With: Jessica Cr DO When: Call [phone] for follow-up appointment. Test Results: Test results from this visit will be discussed in further detail at your follow-up appointment, if applicable. Discharge Plan Admission Primary Reason for Your Visit: leep procedure Attending Provider: Jessica Cr Primary Care Provider: Katelyn Richmond Discharge Orders/Prescriptions Prescriptions: Continued levothyroxine 50 mcg capsule 50 mcg PO DAILY RF: 0 omeprazole 10 mg capsule,delayed release(DR/EC) 10 mg PO DAILY RF: 0 vitamin B complex Tablet 1 tab PO DAILY RF: 0 cholecalciferol (vitamin D3) [Vitamin D3] 25 mcg (1,000 unit) Capsule 25 mcg PO DAILY RF: 0 coenzyme Q10 [CoQ-10] 100 mg Capsule 100 mg PO DAILY RF: 0 metoprolol succinate 25 mg tablet extended release 24 hr 25 mg PO DAILY Qty: 90 RF: 3 simvastatin 20 mg tablet 20 mg PO QHS Qty: 90 RF: 3 Referrals / Follow Up: Katelyn Richmond DO [Primary Care Provider] - Disposition Disposition (needs filled in before D/C Order can be placed): Home, Self Care
[2021-11-28 12:20] VITALS: BP 134/84; BP 139/90; PULSE 70; RESP 16; TEMP 36.4; O2SAT 97
== END 2021-11-28 23:59 | disposition home or self-care (01) ==
LOC: SDC 08:40 → AC 08:40
PROVIDERS: PCP Internal Medicine; Referring Provider Obstetrics & Gynecology; Visit Provider Obstetrics & Gynecology
PROC: 0UBC7ZZ Excision of Cervix, Via Natural or Artificial Opening (ICD-10-PCS; CPT 57522; principal; 2021-11-28 09:45)
DX: N87.1 Moderate cervical dysplasia (principal); E78.5 Hyperlipidemia, unspecified; E03.9 Hypothyroidism, unspecified; Z20.822 Contact with and (suspected) exposure to COVID-19; Z79.890 Hormone replacement therapy; Z79.899 Other long term (current) drug therapy; Z86.718 Personal history of other venous thrombosis and embolism; Z87.891 Personal history of nicotine dependence
CPT/HCPCS: 57522; 00940; 36415; 81025; 85025; 87426; 88305; 88307; 88341; 88342; C9803; J7120; J2405

== ENCOUNTER → 2022-09-26 | Outpatient (CLI) | payer BC, SELFPAY ==
--- NOTE | 2022-09-26 07:54 | BI_ITS ---
MAMMOGRAPHY - BILATERAL SCREENING REASON FOR EXAM: Female, 57 years old. Routine annual screening examination. PERTINENT HISTORY: Non-contributory. TECHNIQUE: Digital bilateral breast flavio (3D mammographic acquisition) in the CC and MLO projections. 2-D mediolateral oblique (MLO) and craniocaudad (CC) views of both breasts were obtained. CAD: Full Field Digital Mammography with Computer Added Detection was performed. COMPARISON: Comparison is made with prior study dated 09/20/2021 and 09/14/2020. FINDINGS: Breast Composition: The breasts are heterogeneously dense, which may obscure small masses. There are no dominant masses or suspicious calcifications. No other significant abnormalities are identified. There has been no significant change since the prior study. BI/SCRN MAMM (CAD)W/FLAVIO BILAT IMPRESSION: Stable bilateral screening mammogram. Yearly follow-up mammogram recommended. (A) ASSESSMENT CATEGORY: BIRADS Category 1: Negative. A letter regarding these results will be sent to the patient by the facility within 30 days. Approximately 10% of breast cancers are not detected by mammography. A normal mammogram should not delay biopsy of a clinically suspicious abnormality. [id number] Electronically Signed: Miguel Alexander MD at 8:45 EST ,
[2022-10-01 12:40] LABS: HPV APTIMA, High Risk Negative (Negative)
== END | disposition home or self-care (01) ==
PROVIDERS: PCP Internal Medicine; Visit Provider Obstetrics & Gynecology
DX: Z12.31 Encounter for screening mammogram for malignant neoplasm of breast (principal); Z12.4 Encounter for screening for malignant neoplasm of cervix
CPT/HCPCS: 77063; 77067; 87624; 88175; G0145

== ENCOUNTER → 2022-11-26 | Outpatient (CLI) | payer BC, SELFPAY ==
--- NOTE | 2022-11-26 16:20 | RAD_ITS ---
STUDY: X-RAY - RIGHT HAND REASON FOR EXAM: Female, 57 years old. Pain. TECHNIQUE: 4 view(s) of the hand. COMPARISON: None. FINDINGS: Normal radiocarpal articulation. Normal distal radioulnar joint. Normal visualized carpal bones. Normal carpal articulations Normal carpometacarpal articulation of the thumb. Normal second through fifth carpometacarpal joints. Normal metacarpi. Normal metacarpophalangeal joint of the thumb. Normal interphalangeal joint of the thumb. Normal proximal and distal phalanges of the thumb. Normal metacarpophalangeal joints of the second through fifth fingers. Normal proximal and distal interphalangeal joints of the second through fifth fingers. Normal phalanges of the second through fifth fingers. The soft tissue structures are unremarkable. RAD/Hand Min 3 Views IMPRESSION: Normal x-ray examination of the hand. Electronically Signed: Brenton Randall, at 11:49 EST ,
== END | disposition home or self-care (01) ==
LOC: MTRAD 16:16
PROVIDERS: PCP Internal Medicine; Visit Provider Nurse Practitioner Family
DX: M79.644 Pain in right finger(s) (principal)
CPT/HCPCS: 73130

== ENCOUNTER → 2023-10-04 | Outpatient (CLI) | payer BC, SELFPAY ==
--- NOTE | 2023-10-04 13:09 | BI_ITS ---
MAMMOGRAPHY - BILATERAL SCREENING REASON FOR EXAM: Female, 58 years old. Routine annual screening examination. PERTINENT HISTORY: Non-contributory. TECHNIQUE: Digital bilateral breast flavio (3D mammographic acquisition) in the CC and MLO projections. 2-D mediolateral oblique (MLO) and craniocaudad (CC) views of both breasts were obtained. CAD: Full Field Digital Mammography with Computer Added Detection was performed. COMPARISON: Comparison is made with prior examination dated September 26, 2022 and September 20, 2021. FINDINGS: Breast Composition: The breasts are heterogeneously dense, which may obscure small masses. There are no dominant masses or suspicious calcifications. No other significant abnormalities are identified. There has been no significant change since the prior study. BI/SCRN MAMM (CAD)W/FLAVIO BILAT IMPRESSION: Stable bilateral screening mammogram. Yearly follow-up mammogram recommended. (A) ASSESSMENT CATEGORY: BIRADS Category 1: Negative. A letter regarding these results will be sent to the patient by the facility within 30 days. Approximately 10% of breast cancers are not detected by mammography. A normal mammogram should not delay biopsy of a clinically suspicious abnormality. [id number] Electronically Signed: Miguel Alexander MD at 14:14 EST ,
[2023-10-10 12:08] LABS: HPV APTIMA, High Risk Negative (Negative)
== END | disposition home or self-care (01) ==
PROVIDERS: PCP Internal Medicine; Referring Provider Obstetrics & Gynecology; Visit Provider Obstetrics & Gynecology
DX: Z12.31 Encounter for screening mammogram for malignant neoplasm of breast (principal); Z12.4 Encounter for screening for malignant neoplasm of cervix
CPT/HCPCS: 77063; 77067; 87624; 88175; G0145

== ENCOUNTER 2024-02-20 08:27 | Day surgery (SDC) | payer BC, SELFPAY ==
[2024-02-20 08:48] VITALS: BP 147/76; PULSE 72; RESP 16; TEMP 36.9; O2SAT 100; BMI 27.3
--- NOTE | 2024-02-20 08:50 | HP.PCM_ITS ---
HPI - General General Date of Admission: 02/20/24 Date of Service: 02/20/24 Chief Complaint: Screening colonoscopy HPI Narrative BRIAN SANTOYO, is a 58 F who presents today for screening colonoscopy. She is never had a colonoscopy in the past. She has a past medical history of mild hyperlipidemia. She does complain of occasional gas after reflux disease. She takes medicine on a daily basis for that. She also has a past medical history of hypothyroidism which is controlled on levothyroxine. [facility] Medical History (Updated 02/13/24 @ 09:51 by Nayla Crawford) PONV (postoperative nausea and vomiting) History of femur fracture Wears glasses Thyroid disease High cholesterol DVT (deep venous thrombosis) Back pain Gastric reflux Former smoker History of echocardiogram Normal stress echocardiogram History of irregular heartbeat Cardiology follow-up encounter JANEL II (cervical intraepithelial neoplasia II) Hyperlipidemia Right leg DVT Palpitations Tachycardia Knee pain Hypothyroidism Right femoral fracture Home Medications ?Medication ?Instructions ?Recorded ?Last Taken ?Type levothyroxine 50 mcg capsule 50 mcg PO DAILY 10/31/21 02/19/24 History cholecalciferol (vitamin D3) 25 25 mcg PO DAILY 11/21/21 02/19/24 History mcg (1,000 unit) capsule (Vitamin D3) coenzyme Q10 100 mg capsule 100 mg PO DAILY 11/21/21 02/19/24 History (CoQ-10) simvastatin 20 mg tablet 10 mg PO QHS 10/04/23 02/19/24 History ascorbic acid (vitamin C) 500 mg 500 mg PO DAILY 12/04/23 02/19/24 History capsule citalopram 20 mg tablet 20 mg PO QHS 12/04/23 02/19/24 History esomeprazole magnesium 40 mg 40 mg PO DAILY PRN GERD 12/04/23 02/19/24 History capsule,delayed release (Nexium) fexofenadine-pseudoephedrine ER 1 tab PO QAM PRN allergy symptoms 12/04/23 02/19/24 History 180 mg-240 mg tablet,ext.release 24 hr (Laura-D 24 Hour) sodium sul 1.479 gram-potas ch See Rx Instructions PO PER PKG DIR 01/21/24 02/20/24 Rx 0.188 gram-magnes sul 0.225 gram Colonoscopy Prep #24 tabs tablet (Sutab) Allergy/AdvReac Type Severity Reaction Status Date / Time amoxicillin Allergy Unknown Rash Verified 02/20/24 08:46 Penicillins Allergy Rash Verified 02/20/24 08:46 Sulfa (Sulfonamide Allergy Rash Verified 02/20/24 08:46 Antibiotics) Family History Father Hypertension Other Diabetes Surgical History H/O LEEP Fracture, femur Social History (Updated 12/04/23 @ 08:12 by Pauline Mcfarland) current occupational status: employed Smoking Status: Former smoker alcohol intake: current details: occasionally substance use type: does not use caffeine: Yes what type of physical activity do you participate in: aerobics frequency: 5-6 times per week seatbelt use: always do you feel safe at home: Yes 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[employer] ROS Review of Systems ROS Unobtainable: other Constitutional Constitutional: Denies fatigue, fever(s), poor appetite, weight gain or weight loss ENT HEENT: Denies mouth lesions Cardiovascular Cardiovascular: Denies abdominal bloating, abdominal edema or abdominal pain Respiratory/Chest Respiratory/Chest: Denies change in mental status, change in phlegm color, chest congestion or chest tightness Gastrointestinal Gastrointestinal: Denies belching, bloating, change in bowel habits, change in stool character, chewing difficulty, coffee ground emesis, constipation, cramping, diarrhea, dyspepsia, dysphagia, early satiety, excessive flatus, fecal incontinence, heartburn, hematemesis, hematochezia, hemorrhoids, loose stools, melena, nausea, odynophagia, rectal bleeding, tenesmus, vomiting or weight changes Genitourinary Genitourinary: Denies abdominal discomfort, burning urination or itching Musculoskeletal Musculoskeletal: Reports as per HPI; Denies muscle weakness or myalgias Integumentary Integumentary: Denies jaundice Neurologic Neurologic: Denies lack of coordination or weakness Psychiatric Psychiatric: Denies confusion, depression, memory loss, mood swings, paranoia or suicidal ideation Endocrine Endocrinology: Denies systems reviewed and no addt'l complaints, except as documented Hematologic/Lymphatic Hematologic/Lymphatic: Denies anemia, easy bleeding, easy bruising or lymphadenopathy Allergic/Immunologic Allergic/Immunologic: Denies systems reviewed and no addt'l complaints, except as documented Vital Signs Vital Signs Vital Signs: 02/20/24 08:48 02/20/24 08:48 02/20/24 09:45 Temperature 98.4 F 97.7 F L Temperature Source Temporal Temporal Pulse Rate 72 71 Respiratory Rate 16 16 Respiratory Pattern Normal Normal Blood Pressure 147/76 H 86/52 L Blood Pressure Mean 99 63 Blood Pressure Source Monitor Monitor Blood Pressure Position Semi-Fowlers Left Lateral Blood Pressure Location Left Arm Right Arm Baseline BP 147/76 Pulse Ox 100 97 Oxygen Delivery Method Room Air Room Air Weight Weight: 154 lb 5.177 oz Body Mass Index (BMI) 27.3 Physical Exam Const alert General Appearance: cooperative Orientation / Consciousness: oriented to person HEENT hearing grossly normal bilaterally Head and Scalp: normal to inspection Face and Sinus: face symmetric Nose: external nose normal Mouth: oral and palatal mucosa normal Eyes conjunctivae normal General Eye: normal appearance of both eyes Neck full ROM General: normal visual inspection Lymph Lymphatic: no lymphadenopathy noted Chest inspection of chest normal and palpation of chest normal Chest: symmetrical chest wall rise Resp normal respiratory effort Effort and Inspection: able to speak in complete sentences Cardio regular rate GI non-distended Percussion: normal to percussion Rectal Exam: deferred Neuro Speech: speech normal Gait (Neuro): normal gait Assessment & Plan Assessment/Plan (1) Encounter for screening for malignant neoplasm of colon: PLAN: She was explained alternatives, risk, benefits including not withstanding bleeding, infection, sepsis, perforation, need for emergent surgery and . She will have an ASA of 3.
[2024-02-20] MEDS: Lactated Ringers 1,000 ML 15 ML IV (08:51)
[2024-02-20 09:45] VITALS: BP 147/76; BP 86/52; PULSE 71; RESP 16; TEMP 36.5; O2SAT 97
--- NOTE | 2024-02-20 09:48 | OP.COLON_ITS ---
Patient Name: Chelsie Dominguez Procedure Date: 02/20/2024 9:25 AM Date of : 1965 Age: 58 Procedure: Colonoscopy Indications: Screening for colorectal malignant neoplasm Providers: Kin Ritter DO Referring MD: Katelyn Richmond Medicines: Monitored Anesthesia Care Patient Profile: This is a 58 year old female. Refer to note in patient chart for documentation of history and physical. Last Colonoscopy: more than 10 years ago. Complications: No immediate complications. Estimated blood loss: None. Procedure: Pre-Anesthesia Assessment: - Prior to the procedure, a History and Physical was performed, and patient medications and allergies were reviewed. The patient is competent. The risks and benefits of the procedure and the sedation options and risks were discussed with the patient. All questions were answered and informed consent was obtained. Patient identification and proposed procedure were verified by the physician in the pre-procedure area. Mental Status Examination: alert and oriented. Airway Examination: normal oropharyngeal airway and neck mobility. Respiratory Examination: clear to auscultation. CV Examination: normal. Prophylactic Antibiotics: The patient does not require prophylactic antibiotics. Prior Anticoagulants: The patient has taken no anticoagulant or antiplatelet agents. ASA Grade Assessment: II - A patient with mild systemic disease. After reviewing the risks and benefits, the patient was deemed in satisfactory condition to undergo the procedure. The anesthesia plan was to use monitored anesthesia care (MAC). Immediately prior to administration of medications, the patient was re-assessed for adequacy to receive sedatives. The heart rate, respiratory rate, oxygen saturations, blood pressure, adequacy of pulmonary ventilation, and response to care were monitored throughout the procedure. The physical status of the patient was re-assessed after the procedure. After I obtained informed consent, the scope was passed under direct vision. Throughout the procedure, the patient's blood pressure, pulse, and oxygen saturations were monitored continuously. The colonoscope was introduced through the anus and advanced to the cecum, identified by appendiceal orifice and ileocecal valve. The colonoscopy was performed without difficulty. The patient tolerated the procedure well. The quality of the bowel preparation was adequate. The ileocecal valve, appendiceal orifice, and rectum were photographed. Scope In: 9:29:51 AM Scope Withdrawal Time 0 hours 6 minutes 29 seconds Scope Out: 9:40:22 AM Total Procedure Duration Time 0 hours 10 minutes 31 seconds Findings: The perianal and digital rectal examinations were normal. A few small-mouthed diverticula were found in the recto-sigmoid colon. The exam was otherwise without abnormality on direct and retroflexion views. Impression: - Diverticulosis in the recto-sigmoid colon. - The examination was otherwise normal on direct and retroflexion views. - No specimens collected. Recommendation: - Discharge patient to home. - Resume previous diet. - Continue present medications. - Await pathology results. - Repeat colonoscopy in 10 years for screening purposes. Procedure Code(s): --- Professional --- G0121, Colorectal cancer screening; colonoscopy on individual not meeting criteria for high risk CPT copyright 2021 [employer]. All rights reserved. The codes documented in this report are preliminary and upon supervisor wet end review may be revised to meet current compliance requirements. Kin Ritter DO 02/20/2024 9:47:56 AM This report has been signed electronically. Number of Addenda: 0 Note Initiated On: 02/20/2024 9:25 AM
--- NOTE | 2024-02-20 09:48 | OP.CCLET_ITS ---
02/20/2024 Katelyn Richmond [address] [place] [address] Re : Colonoscopy procedure for Chelsie Dominguez Dear Dr. Richmond This procedure was performed on January. My impressions and recommendations are as follows: Impressions : - Diverticulosis in the recto-sigmoid colon. - The examination was otherwise normal on direct and retroflexion views. - No specimens collected. Recommendations : - Discharge patient to home. - Resume previous diet. - Continue present medications. - Await pathology results. - Repeat colonoscopy in 10 years for screening purposes. My findings are described in the full procedure note, which is enclosed. If I can be of further assistance, please feel free to contact me at . Sincerely, Kin Ritter, 02/20/2024 9:47:56 AM This report has been signed electronically.
[2024-02-20 09:50] VITALS: BP 147/76; BP 87/50; PULSE 66; RESP 16; O2SAT 97
[2024-02-20 10:00] VITALS: BP 147/76; BP 90/57; PULSE 62; RESP 16; O2SAT 97
[2024-02-20 10:05] VITALS: BP 113/68; BP 147/76; PULSE 82; RESP 16; TEMP 37.2; O2SAT 97
[2024-02-20 10:23] VITALS: BP 147/76
== END 2024-02-20 10:30 | disposition home or self-care (01) ==
LOC: EN 08:27 → AC 08:28
PROVIDERS: PCP Internal Medicine; Referring Provider Internal Medicine; Visit Provider Internal Medicine Gastroenterology
PROC: 0DJD8ZZ Inspection of Lower Intestinal Tract, Via Natural or Artificial Opening Endoscopic (ICD-10-PCS; CPT 45378; principal; 2024-02-20 09:25)
DX: Z12.11 Encounter for screening for malignant neoplasm of colon (principal); K57.30 Diverticulosis of large intestine without perforation or abscess without bleeding; Z87.891 Personal history of nicotine dependence; E78.00 Pure hypercholesterolemia, unspecified; K21.9 Gastro-esophageal reflux disease without esophagitis; E03.9 Hypothyroidism, unspecified; Z79.899 Other long term (current) drug therapy; Z79.890 Hormone replacement therapy
CPT/HCPCS: 45378; J2405

== ENCOUNTER → 2024-10-05 | Outpatient (CLI) | payer BC, SELFPAY ==
--- NOTE | 2024-10-05 15:02 | BI_ITS ---
MAMMOGRAPHY - BILATERAL SCREENING REASON FOR EXAM: Female, 59 years old. Routine annual screening examination. PERTINENT HISTORY: Non-contributory. TECHNIQUE: Digital bilateral breast flavio (3D mammographic acquisition) in the CC and MLO projections. 2-D mediolateral oblique (MLO) and craniocaudad (CC) views of both breasts were obtained. CAD: Full Field Digital Mammography with Computer Added Detection was performed. COMPARISON: Comparison is made with prior study dated October 04, 2023 and September 26, 2022. FINDINGS: Breast Composition: The breasts are heterogeneously dense, which may obscure small masses. There are no dominant masses or suspicious calcifications. No other significant abnormalities are identified. There has been no significant change since the prior study. BI/SCRN MAMM (CAD)W/FLAVIO BILAT IMPRESSION: Stable bilateral screening mammogram. Yearly follow-up mammogram recommended. (A) ASSESSMENT CATEGORY: BIRADS Category 1: Negative. A letter regarding these results will be sent to the patient by the facility within 30 days. Approximately 10% of breast cancers are not detected by mammography. A normal mammogram should not delay biopsy of a clinically suspicious abnormality. [id number] Electronically Signed: Miguel Alexander MD at 15:26 EST ,
== END | disposition home or self-care (01) ==
LOC: OPBI 15:00
PROVIDERS: PCP Internal Medicine; Referring Provider Obstetrics & Gynecology; Visit Provider Obstetrics & Gynecology
DX: Z12.31 Encounter for screening mammogram for malignant neoplasm of breast (principal)

== ENCOUNTER → 2024-10-06 | Outpatient (CLI) | payer BC, SELFPAY ==
[2024-10-08 13:07] LABS: HPV APTIMA, High Risk Negative (Negative)
== END | disposition home or self-care (01) ==
LOC: LABSPEC 11:11
PROVIDERS: PCP Internal Medicine; Referring Provider Obstetrics & Gynecology; Visit Provider Obstetrics & Gynecology
DX: Z12.4 Encounter for screening for malignant neoplasm of cervix (principal)

== ENCOUNTER → 2024-12-09 | Outpatient (CLI) | payer BC, SELFPAY ==
--- NOTE | 2024-12-09 16:19 | BD_ITS ---
PROCEDURE: DEXA BONE DENSITY STUDY REASON FOR EXAM: None provided. TECHNIQUE: DEXA scan of the lumbar spine and left hip, using a Hologic Horizon W unit. REFERENCE LINKS: ISCD Adult Positions COMPARISON: None FINDINGS: LUMBAR SPINE: Bone mineral denisty, L1-L4: 1.131 g/cm??? T-score: 0.8 LEFT FEMORAL NECK: Bone mineral denisty: 0.745 g/cm??? T-score: -0.9 LEFT TOTAL HIP: Bone mineral denisty: 0.900 g/cm??? T-score: -0.3 FRAX*: 10 Year Probability of Fracture: Major Osteoporotic Fracture(1): 11.0% Hip Fracture(2): 0.5% *FRAX is a trademark of the [employer]'s [place] [employer] Metabolic Bone Disease, World Health Organization (WHO) Collaborating [place]. 1-Major Osteoporotic Fracture: Clinical Spine, Forearm, Hip or Shoulder. 2-The 10-year probability of fracture may be lower than reported if the patient has received treatment. BD/Dexa Bone Density Study IMPRESSION: 1. Bone mineral denisty is borderline but technically low normal. 2. No prior exams are available for comparison. 3. Additional description as above. Reading Location: [facility]
== END | disposition home or self-care (01) ==
LOC: OPBD 16:11
PROVIDERS: PCP Internal Medicine; Referring Provider Internal Medicine; Visit Provider Internal Medicine
DX: Z78.0 Asymptomatic menopausal state (principal)
CPT/HCPCS: 77080

== ENCOUNTER → 2025-07-28 | Outpatient (CLI) | payer BC, SELFPAY | END | disposition home or self-care (01) | LOC: MTLAB 12:33 | PROVIDERS: PCP Nurse Practitioner Family; Referring Provider Nurse Practitioner Family; Visit Provider Nurse Practitioner Family | DX: E03.9 Hypothyroidism, unspecified (principal) | CPT/HCPCS: 36415; 84439; 84443 ==